=== PATIENT | female | born 1960 | race Caucasian/White ===

== ENCOUNTER 2016-05-01 18:25 | Emergency (ER) | payer OTHER ==
[~2016-05-01] VITALS: Ht 152.4 cm; Wt 63.5 kg
[~2016-05-01 18:25] MED LIST: ALBU2.5V3 NEB; ARIP5TAB7 PO; ASPI-650 PO; CIPR500T4 PO; CYCL-319 PO; EZET1TAB9 PO; GABA600T PO; HYDR-906 PO; HYDR12.53 PO; IBUP-1542 PO; IBUP800T25 PO; INSU100V19 SQ; LEVO100T87 PO; LISI5TAB PO; LORA10CA PO; METF-388 PO; METO-448 PO; NAPR-688 PO; OMEP20CA9 PO; ONDA4TAB14 PO; ONDA4TAB35 PO; RIS1 PO
[2016-05-01 18:30] VITALS: Ht 152.4 cm; Wt 63.5 kg
[2016-05-01] MEDS ORDERED: ONDANSETRON (ODT) 4 MG TAB ODT STA (22:50)
--- NOTE | 2016-05-01 22:54 | ERD ---
ER Documentation Chief Complaint Date/Time DATE: 05/01/16 TIME: 22:51 Chief Complaint n/v sharp abd generalized pain x 1 day HPI The patient is a 56-year-old female here with nausea, vomiting, and epigastric and right upper quadrant abdominal pain since this morning. She had 5 episodes of vomiting today. She denies fever, chills, diarrhea, constipation, dysuria, flank pain, chest pain, difficulty breathing, or any other symptoms at this time. States her last bowel movement was 2 days ago and was normal. She denies hematochezia and melena. No home treatments. She was seen at an emergency department through [facility] yesterday and she stated that she had an anxiety attack. The patient states that they did an EKG, chest x-ray, and labs which were all normal per the patient's report. She states that she has felt similar abdominal pain, nausea, and vomiting 4 years ago when she experienced an anxiety attack. She states that she has had an appendectomy, cholecystectomy , and C-sections in the past. She denies eating any questionable foods or new foods. She denies sick contacts with similar symptoms. ROS All systems reviewed and are negative except as per history of present illness. Medications Home Meds Active Scripts Ondansetron Hcl* (Zofran*) 4 Mg Tablet, 4 MG PO Q6H for NAUSEA AND/OR VOMITING, #9 TAB Prov:ZOIE DUNCAN NP 05/02/16 Acetaminophen* (Tylenol*) 325 Mg Tablet, 2 TAB PO Q6 Y for PAIN AND OR ELEVATED TEMP, #20 TAB Prov:ZOIE DUNCAN NP 05/02/16 Cyclobenzaprine Hcl* (Cyclobenzaprine Hcl*) 10 Mg Tablet, 10 MG PO TID, #15 TAB Prov:NORM BREWER [employer] 04/08/16 Ondansetron (Ondansetron Odt) 4 Mg Tab.rapdis, 4 MG PO Q6H Y for NAUSEA AND/OR VOMITING, #10 TAB Prov:ASHLEY MURPHY DO 01/19/16 Hydrocodone/Acetaminophen ([place] 5-325 Tablet) 1 Each Tablet, 1 EACH PO Q6, #7 TAB Prov:ASHLEY MURPHY DO 01/19/16 Naproxen* (Naproxen*) 500 Mg Tablet, 500 MG PO BID Y for PAIN, #20 TAB Prov:ASHLEY MURPHY DO 01/19/16 Ciprofloxacin Hcl* (Ciprofloxacin Hcl*) 500 Mg Tablet, 500 MG PO BID for 3 Days , TAB Prov:ASHLEY MURPHY DO 01/19/16 Ibuprofen* (Motrin*) 600 Mg Tab, 600 MG PO Q6, #30 TAB Prov:LUIS ENRIQUE POTTS Nola 01/18/16 Hydrocodone/Acetaminophen ([place] 5-325 Tablet) 1 Each Tablet, 1 TAB PO Q6H Y for PAIN, #20 TAB Prov:LUIS ENRIQUE POTTS Nola 01/18/16 Ondansetron Hcl* (Zofran* ODT) 4 mg -ODT Tab.disper, 4 MG PO Q6 Y for NAUSEA AND /OR VOMITING, #10 TAB Prov:CAT PATTON MD 06/11/15 Ibuprofen* (Motrin*) 800 Mg Tab, 800 MG PO Q6H Y for PAIN AND OR ELEVATED TEMP, #30 TAB Prov:CAT PATTON MD 06/11/15 Reported Medications Aripiprazole* (Abilify*) 5 Mg Tab, 5 MG PO DAILY, TAB 04/10/14 Albuterol Sulfate* (Albuterol Sulfate* Neb) 0.083%-3 Ml Neb, 1.25 MG NEB for WHEEZING AND SOB, EA 01/16/14 Loratadine* (Claritin*) 10 Mg Capsule, 10 MG PO DAILY 11/13/12 Risperidone* (Risperdal*) 1 Mg Tablet, 1 MG PO DAILY 08/09/12 Lisinopril* (Prinivil*) 5 Mg Tablet, 5 MG PO DAILY 08/09/12 Hydrochlorothiazide (Hydrochlorothiazide) 12.5 Mg Capsule, 12.5 MG PO DAILY 04/15/12 Aspirin (Aspirin) 81 Mg Tablet, 81 MG PO DAILY 04/15/12 Ezetimibe-Simvastatin (Vytorin) 1 Tab Tablet, 1 TAB PO DAILY 04/15/12 Levothyroxine Sodium* (Levothyroxine Sodium*) 100 Mcg Tablet, 100 MCG PO DAILY 04/15/12 Metoprolol Tartrate* (Lopressor*) 25 Mg Tab, 12.5 MG PO DAILY 04/15/12 Metformin Hcl* (Metformin Hcl*) 1,000 Mg Tablet, 1000 MG PO BID 04/15/12 Omeprazole* (Prilosec*) 20 Mg Capsule.dr, 20 MG PO DAILY 04/15/12 Gabapentin* (Neurontin*) 600 Mg Tablet, 600 MG PO TID 04/15/12 Insulin Glargine,Hum.rec.anlog (Lantus) 100 U/Ml Vial, 10 UNITS SQ HS 04/15/12 Allergies Allergies: Coded Allergies: povidone-iodine (Verified Allergy, Unknown, SWELLING, 06/11/15) PMhx/Soc History of Surgery: No Anesthesia Reaction: No Hx Neurological Disorder: No Hx Respiratory Disorders: No Hx Cardiac Disorders: No Hx Psychiatric Problems: No Hx Alcohol Use: No Hx Substance Use: No Hx Tobacco Use: No Smoking Status: Never smoker Physical Exam Vitals Vital Signs Date Time Temp Pulse Resp B/P Pulse Ox O2 Delivery O2 Flow Rate FiO2 05/02/16 02:10 98.6 89 20 103/69 98 Room Air 05/01/16 18:30 98.8 92 18 139/66 99 Physical Exam INITIAL VITAL SIGNS: Reviewed by me, afebrile, no tachycardia, oximetry 99% on room air GENERAL: Alert. Well developed and well nourished. No acute distress, however appears uncomfortable. HEAD: Head is normocephalic. Atraumatic. EYES: EOMI. No scleral icterus. No conjunctival injection. ENT: External ears, nose, and mouth normal. Nasal passages patent. Throat clear and without erythema or purulence. Airway patent. Moist mucous membranes. NECK: Supple. Full range of motion. No lymphadenopathy. Trachea midline. RESPIRATORY: No tachypnea. Clear to auscultation bilaterally. No wheezing, rales , or rhonchi. CV: Regular rate and rhythm. No murmurs, rubs, or gallops ABDOMEN: + Abdomen diffusely tender to palpation, worse in epigastric region. Negative Kessler's sign. Soft, non-distended. No guarding. No rebound. No masses. Bowel sounds normal in all quadrants. BACK: No CVA tenderness. Full ROM. EXTREMITIES: No obvious deformity. No clubbing or cyanosis. No edema. SKIN: Warm and dry. No diaphoresis. No obvious rashes or lesions. NEUROLOGIC: Alert and oriented x 3. Appropriate. Face is symmetric. Speech is normal. Moves all extremities equally. Result Diagram: 05/02/16 0020 05/02/16 0020 Results 24 hrs Laboratory Tests Test 05/01/16 23:15 05/02/16 00:20 05/02/16 00:21 Bedside Urine Blood Negative Bedside Urine Glucose (UA) 0.50% Bedside Urine Ketones (LAB) Negative Bedside Urine Leukocyte Esterase (L Trace Bedside Urine Nitrite (LAB) Negative Bedside Urine Protein (LAB) 2+ Bedside Urine pH (LAB) 5.5 Alanine Aminotransferase (ALT/SGPT) 38IU/L Albumin 3.7g/dl Albumin/Globulin Ratio 1.00 Alkaline Phosphatase 121IU/L Anion Gap 16 Aspartate Amino Transf (AST/SGOT) 41IU/L Basophils # 0.010^3/ul Basophils % 0.3% Blood Urea Nitrogen 20mg/dl Calcium Level 9.4mg/dl Carbon Dioxide Level 26mmol/L Chloride Level 103mmol/L Creatinine 0.54mg/dl Direct Bilirubin 0.00mg/dl Eosinophils # 0.210^3/ul Eosinophils % 3.0% Globulin 3.70g/dl Glucose Level 184mg/dl Hematocrit 37.3% Hemoglobin 13.2g/dl Indirect Bilirubin 0.3mg/dl Lymphocytes # 2.810^3/ul Lymphocytes % 46.5% Mean Corpuscular Hemoglobin 34.3pg Mean Corpuscular Hemoglobin Concent 35.3g/dl Mean Corpuscular Volume 97.2fl Mean Platelet Volume 8.9fl Monocytes # 0.410^3/ul Monocytes % 7.0% Neutrophils # 2.610^3/ul Neutrophils % 43.2% Nucleated Red Blood Cells # 0.010^3/ul Nucleated Red Blood Cells % 0.0/100WBC Platelet Count 58206^3/UL Potassium Level 4.3mmol/L Red Blood Count 3.8410^6/ul Red Cell Distribution Width 12.1% Sodium Level 141mmol/L Total Bilirubin 0.3mg/dl Total Protein 7.4g/dl White Blood Count 6.010^3/ul Bedside Glucose 197mg/dL Current Medications Medications (Trade) Dose Ordered Sig/Leyla Route PRN Reason Start Time Stop Time Status Last Admin Dose Admin Ondansetron HCl (Zofran Odt) 4 mg ONCE STAT ODT 05/01/16 22:50 05/01/16 22:52 DC 05/01/16 22:50 Acetaminophen (Tylenol Tab) 650 mg ONCE ONCE PO 05/01/16 23:00 05/01/16 23:01 DC 05/01/16 23:04 Ondansetron HCl (Zofran Odt) 4 mg ONCE STAT ODT 05/02/16 00:30 05/02/16 00:32 DC 05/02/16 00:38 Procedures/MDM Nursing Notes Reviewed [facility] EMERGENCY DEPARTMENT COURSE / MEDICAL DECISION MAKING: The patient comes to the ED secondary to nausea, vomiting, abdominal pain since this morning. Differential diagnosis upon initial evaluation includes but is not limited to: Bowel obstruction, diverticulitis, sepsis, viral illness, food poisoning, DKA, and others. The patient was treated with Zofran 4 mg p.o., Tylenol 650 mg p.o. On reassessment, patient was not feeling much better. Was treated with another Zofran 4mg po. CBC: no e/o of systemic infection or severe anemia CMP: no e/o severe acidosis, alkalosis, renal failure, diabetic ketoacidosis, liver disease Urine: no e/o acute infection or hematuria Accu-check: 197 Otherwise within normal limits, unremarkable, or as documented above. Final impression: Nausea and vomiting On reassessment, patient's abdominal pain has completely resolved, and her repeat physical exam was benign. She was not tender to palpation anywhere throughout her abdomen and she had normal bowel sounds in all quadrants. She stated that she is feeling fine and wishes to be discharged home at this time. Given her HPI, benign exam, her normal laboratory studies, and her drastic improvement with treatment, I have low suspicion at this time for DKA, bowel obstruction, diverticulitis, sepsis, food poisoning, or any other serious cause of illness. She has had her gallbladder and appendix removed. Although one can suffer from choledocholithiasis after gallbladder removal, I have low suspicion of this given her HPI, benign physical, normal labs, afebrile status, and improvement with treatment. Based on patient's history of present illness and physical examination the decision was made to discharge. The patient was re-evaluated after ED treatment and stabilizing measures, and symptoms have improved. There is no evidence of life threatening injuries or illnesses at this time. On re-examination, patient resting in no distress, stable vital signs, reports feeling better and safe for discharge with outpatient follow up with PMD in 1-2 days. Patient given return precautions. She verbalized understanding and agreed to return precautions. She will return immediately with any worsening symptoms, new symptoms, changing symptoms, or concerns. Prescriptions ZOIE Deleon NP May 01, 2016 22:54
[2016-05-01] MEDS ORDERED: ACETAMINOPHEN 325 MG TAB PO ONE (23:00)
[2016-05-01 23:15] LABS: URINE BLOOD (Dip) POC Negative (NEGATIVE)
[2016-05-02] MEDS ORDERED: ONDANSETRON (ODT) 4 MG TAB ODT STA (00:30)
[2016-05-02 01:08] LABS: ALBUMIN 3.7 g/dl (3.3-4.9); POTASSIUM 4.3 mmol/L (3.5-5.1)
[2016-05-02 01:10] LABS: CREATININE 0.54 mg/dl (0.44-1.00)
[2016-05-02 01:11] LABS: BILIRUBIN,INDIRECT 0.3 mg/dl (0-1.1); BILIRUBIN,TOTAL 0.3 mg/dl (0.2-1.3); TOTAL PROTEIN 7.4 g/dl (6.1-8.1)
[2016-05-02 01:12] LABS: CALCIUM 9.4 mg/dl (8.4-10.2)
[2016-05-02 01:29] LABS: BASOPHILS % 0.3 % (0.0-2.0); EOSINOPHILS # 0.2 10^3/ul (0.0-0.5); HEMATOCRIT 37.3 % (37.0-47.0); HEMOGLOBIN 13.2 g/dl (12.0-16.0); LYMPHOCYTES # 2.8 10^3/ul (0.8-2.9); LYMPHOCYTES % 46.5 % (15.0-51.0); MEAN CORPUSCULAR HEMOGLOBIN 34.3 pg (29.0-33.0); MEAN CORPUSCULAR HGB CONC 35.3 g/dl (32.0-37.0); MEAN CORPUSCULAR VOLUME 97.2 fl (82.0-101.0); MEAN PLATELET VOLUME 8.9 fl (7.4-10.4); MONOCYTE # 0.4 10^3/ul (0.3-0.9); NEUTROPHIL # 2.6 10^3/ul (1.6-7.5); NEUTROPHILS % 43.2 % (39.0-77.0); PLATELET COUNT 296 10^3/UL (140-440); RED BLOOD COUNT 3.84 10^6/ul (4.20-5.40); RED CELL DISTRIBUTION WIDTH 12.1 % (11.5-14.5)
[2016-05-02 01:30] LABS: CONDITION 1
[2016-05-02] MEDS ORDERED: ACET325T33 PO (01:41)
[2016-05-02] MEDS ORDERED: ONDA4TAB8 PO (01:41)
[2016-05-02 02:10] VITALS: BP 103/69; PULSE 89; RESP 20; TEMP 98.6
== END 2016-05-02 02:08 | disposition home or self-care (01) ==
LOC: FTE 18:25
DX: R11.2 Nausea with vomiting, unspecified (principal); E11.9 Type 2 diabetes mellitus without complications; Z79.82 Long term (current) use of aspirin; Z79.84 Long term (current) use of oral hypoglycemic drugs; Z79.4 Long term (current) use of insulin
CPT/HCPCS: 80053; 81003; 82962; 85025; Z7502; Z7610; 99283

== ENCOUNTER 2016-09-01 12:12 | Emergency (ER) | payer OTHER ==
[~2016-09-01] VITALS: Wt 69.0 kg
[~2016-09-01 12:12] MED LIST changes: +ACET325T33 PO; -METF-388 PO; +METF1000 PO; +ONDA4TAB8 PO
[2016-09-01] MEDS ORDERED: SOD CHLORIDE 0.9% 1,000 ML IV STA (14:29)
[2016-09-01] MEDS ORDERED: DICLOFENAC SODIUM 37.5 MG/ML VIAL IV STA (14:29)
[2016-09-01] MEDS ORDERED: ONDANSETRON 4 MG INJ IV STA (14:29)
[2016-09-01 15:01] LABS: ADD UMIC YES; URINE BILIRUBIN (Dip) NEGATIVE (NEGATIVE); URINE BLOOD (Dip) TRACE (NEGATIVE); URINE COLOR YELLOW (YELLOW); URINE GLUCOSE (Dip) >=1000 % (NEGATIVE); URINE KETONES (Dip) TRACE (NEGATIVE); URINE LEUKOCYTE ESTERASE (Dip) 1+ (NEGATIVE); URINE NITRITE (Dip) NEGATIVE (NEGATIVE); URINE TOTAL PROTEIN (Dip) 1+ (NEGATIVE); URINE UROBILINOGEN (Dip) 0.2 E.U./dL (0.1-1.0)
[2016-09-01 15:06] LABS: ADD SCAN DIFF NO
[2016-09-01 15:08] LABS: BASOPHIL # 0.1 10^3/ul (0.0-0.1); BASOPHILS % 0.8 % (0.0-2.0); EOSINOPHILS # 0.2 10^3/ul (0.0-0.5); EOSINOPHILS % 3.3 % (0.0-7.0); HEMATOCRIT 39.6 % (37.0-47.0); LYMPHOCYTES # 2.3 10^3/ul (0.8-2.9); LYMPHOCYTES % 35.9 % (15.0-51.0); MEAN CORPUSCULAR HEMOGLOBIN 33.7 pg (29.0-33.0); MEAN CORPUSCULAR HGB CONC 35.4 g/dl (32.0-37.0); MEAN CORPUSCULAR VOLUME 95.4 fl (82.0-101.0); MEAN PLATELET VOLUME 10.3 fl (7.4-10.4); MONOCYTE # 0.3 10^3/ul (0.3-0.9); MONOCYTES % 4.5 % (0.0-11.0); NEUTROPHIL # 3.5 10^3/ul (1.6-7.5); NEUTROPHILS % 55.2 % (39.0-77.0); PLATELET COUNT 270 10^3/UL (140-415); RED BLOOD COUNT 4.15 10^6/ul (4.20-5.40); RED CELL DISTRIBUTION WIDTH 12.3 % (11.5-14.5); WHITE BLOOD COUNT 6.4 10^3/ul (4.8-10.8)
[2016-09-01 15:11] LABS: SQUAMOUS EPITHELIAL CELL,UR FEW
[2016-09-01 15:13] LABS: BACTERIA,URINE OCCASIONAL
[2016-09-01 15:27] LABS: ALBUMIN/GLOBULIN RATIO 1.05; BILIRUBIN,INDIRECT 0.4 mg/dl (0-1.1); BILIRUBIN,TOTAL 0.4 mg/dl (0.2-1.3); CALCIUM 9.9 mg/dl (8.4-10.2); CREATININE 0.72 mg/dl (0.44-1.00); POTASSIUM 4.6 mmol/L (3.5-5.1); TOTAL PROTEIN 7.8 g/dl (6.1-8.1)
[2016-09-01] MEDS ORDERED: ONDA8TAB14 PO ×2 (16:00→16:01)
[2016-09-01] MEDS ORDERED: CEPH-443 PO (16:00)
[2016-09-01] MEDS ORDERED: ACET1TAB40 PO (16:01)
--- NOTE | 2016-09-01 16:08 | ERD ---
ER Documentation Chief Complaint Date/Time DATE: 09/01/16 TIME: 16:06 Chief Complaint AP AND NAUSEA AND VOMITING SINCE LAST NIGHT. EPIGASTRIC PAIN HPI This 56-year-old female presents with some nausea vomiting since last night. She has some left-sided and epigastric abdominal pain as well. She denies right -sided lower abdominal pain. She denies any measured fevers although she may have some chills. She denies any urinary complaints. Review of the medical record shows that patient present for similar pain last year with a diagnosis of colitis by CT scan ROS All systems reviewed and are negative except as per history of present illness. Medications Home Meds Active Scripts Acetaminophen with Codeine (Acetaminophen-Cod #3 Tablet) 1 Each Tablet, 1 TAB PO Q6H Y for PAIN, #10 TAB Prov:KAPIL CHERRY MD 09/01/16 Ondansetron (Ondansetron Odt) 8 Mg Tab.rapdis, 8 MG PO Q6H Y for NAUSEA AND/OR VOMITING, #8 TAB Prov:KAPIL CHERRY MD 09/01/16 Cephalexin* (Keflex*) 500 Mg Capsule, 500 MG PO QID for 5 Days, CAP Prov:KAPIL CHERRY MD 09/01/16 Ondansetron Hcl* (Zofran*) 4 Mg Tablet, 4 MG PO Q6H for NAUSEA AND/OR VOMITING, #9 TAB Prov:ZOIE DUNCAN, BON 05/02/16 Acetaminophen* (Tylenol*) 325 Mg Tablet, 2 TAB PO Q6 Y for PAIN AND OR ELEVATED TEMP, #20 TAB Prov:ZOIE DUNCAN NP 05/02/16 Cyclobenzaprine Hcl* (Cyclobenzaprine Hcl*) 10 Mg Tablet, 10 MG PO TID, #15 TAB Prov:NORM BREWER NP 04/08/16 Ondansetron (Ondansetron Odt) 4 Mg Tab.rapdis, 4 MG PO Q6H Y for NAUSEA AND/OR VOMITING, #10 TAB Prov:ASHLEY MURPHY DO 01/19/16 Hydrocodone/Acetaminophen ([place] 5-325 Tablet) 1 Each Tablet, 1 EACH PO Q6, #7 TAB Prov:ASHLEY MURPHY DO 01/19/16 Naproxen* (Naproxen*) 500 Mg Tablet, 500 MG PO BID Y for PAIN, #20 TAB Prov:ASHLEY MURPHY DO 01/19/16 Ciprofloxacin Hcl* (Ciprofloxacin Hcl*) 500 Mg Tablet, 500 MG PO BID for 3 Days , TAB Prov:ASHLEY MURPHY DO 01/19/16 Ibuprofen* (Motrin*) 600 Mg Tab, 600 MG PO Q6, #30 TAB Prov:LUIS ENRIQUE POTTS Nola 01/18/16 Hydrocodone/Acetaminophen ([place] 5-325 Tablet) 1 Each Tablet, 1 TAB PO Q6H Y for PAIN, #20 TAB Prov:LUIS ENRIQUE POTTS C 01/18/16 Ondansetron Hcl* (Zofran* ODT) 4 mg -ODT Tab.disper, 4 MG PO Q6 Y for NAUSEA AND /OR VOMITING, #10 TAB Prov:CAT PATTON MD 06/11/15 Ibuprofen* (Motrin*) 800 Mg Tab, 800 MG PO Q6H Y for PAIN AND OR ELEVATED TEMP, #30 TAB Prov:CAT PATTON MD 06/11/15 Reported Medications Aripiprazole* (Abilify*) 5 Mg Tab, 5 MG PO DAILY, TAB 04/10/14 Albuterol Sulfate* (Albuterol Sulfate* Neb) 0.083%-3 Ml Neb, 1.25 MG NEB for WHEEZING AND SOB, EA 01/16/14 Loratadine* (Claritin*) 10 Mg Capsule, 10 MG PO DAILY 11/13/12 Risperidone* (Risperdal*) 1 Mg Tablet, 1 MG PO DAILY 08/09/12 Lisinopril* (Prinivil*) 5 Mg Tablet, 5 MG PO DAILY 08/09/12 Hydrochlorothiazide (Hydrochlorothiazide) 12.5 Mg Capsule, 12.5 MG PO DAILY 04/15/12 Aspirin (Aspirin) 81 Mg Tablet, 81 MG PO DAILY 04/15/12 Ezetimibe-Simvastatin (Vytorin) 1 Tab Tablet, 1 TAB PO DAILY 04/15/12 Levothyroxine Sodium* (Levothyroxine Sodium*) 100 Mcg Tablet, 100 MCG PO DAILY 04/15/12 Metoprolol Tartrate* (Lopressor*) 25 Mg Tab, 12.5 MG PO DAILY 04/15/12 Metformin Hcl* (Metformin Hcl*) 1,000 Mg Tablet, 1000 MG PO BID 04/15/12 Omeprazole* (Prilosec*) 20 Mg Capsule.dr, 20 MG PO DAILY 04/15/12 Gabapentin* (Neurontin*) 600 Mg Tablet, 600 MG PO TID 04/15/12 Insulin Glargine,Hum.rec.anlog (Lantus) 100 U/Ml Vial, 10 UNITS SQ HS 04/15/12 Discontinued Scripts Ondansetron (Ondansetron Odt) 8 Mg Tab.rapdis, 8 MG PO Q6H Y for NAUSEA AND/OR VOMITING, #8 TAB Prov:KAPIL CHERRY MD 09/01/16 Allergies Allergies: Coded Allergies: povidone-iodine (Verified Allergy, Unknown, SWELLING, 09/01/16) PMhx/Soc History of Surgery: No Anesthesia Reaction: No Hx Neurological Disorder: No Hx Respiratory Disorders: Yes (ASTHMA ) Hx Cardiac Disorders: Yes (HTN , HIGH CHOLESTEROL ) Hx Psychiatric Problems: Yes (PTSD , BIPOLAR , SCHIZOPHRENIA , DEPRESSION ) Hx Alcohol Use: No Hx Substance Use: No Hx Tobacco Use: No Smoking Status: Never smoker Physical Exam Vitals Vital Signs Date Time Temp Pulse Resp B/P Pulse Ox O2 Delivery O2 Flow Rate FiO2 09/01/16 12:16 98.8 88 20 117/80 99 Physical Exam Const: [] Alert, [id number] per Head: Atraumatic Eyes: Normal Conjunctiva ENT: Normal External Ears, Nose and Mouth. Neck: Full range of motion..~ No meningismus. Resp: Clear to auscultation bilaterally Cardio: Regular rate and rhythm, no murmurs Abd: Soft mild epigastric tenderness. No rebound no masses. No Kessler sign and no tenderness at McBurney's point., non distended. Normal bowel sounds Skin: No petechiae or rashes Back: No midline or flank tenderness Ext: No cyanosis, or edema Neur: Awake and alert Psych: Normal Mood and Affect Result Diagram: 09/01/16 1450 09/01/16 1450 Results 24 hrs Laboratory Tests Test 09/01/16 14:40 09/01/16 14:50 Urine Color YELLOW Urine Clarity SLIGHTLY CLOUDY Urine pH 6.0 Urine Specific Nichols 1.025 Urine Ketones TRACE Urine Nitrite NEGATIVE Urine Bilirubin NEGATIVE Urine Urobilinogen 0.2 E.U./dL Urine Leukocyte Esterase 1+ Urine Microscopic RBC 2-5/HPF Urine Microscopic WBC 5-10/HPF Urine Squamous Epithelial Cells FEW Urine Bacteria OCCASIONAL Urine Hemoglobin TRACE Urine Glucose >=1000% Urine Total Protein 1+ White Blood Count 6.410^3/ul Red Blood Count 4.1510^6/ul Hemoglobin 14.0g/dl Hematocrit 39.6% Mean Corpuscular Volume 95.4fl Mean Corpuscular Hemoglobin 33.7pg Mean Corpuscular Hemoglobin Concent 35.4g/dl Red Cell Distribution Width 12.3% Platelet Count 63497^3/UL Mean Platelet Volume 10.3fl Neutrophils % 55.2% Lymphocytes % 35.9% Monocytes % 4.5% Eosinophils % 3.3% Basophils % 0.8% Nucleated Red Blood Cells % 0.0/100WBC Neutrophils # 3.510^3/ul Lymphocytes # 2.310^3/ul Monocytes # 0.310^3/ul Eosinophils # 0.210^3/ul Basophils # 0.110^3/ul Nucleated Red Blood Cells # 0.010^3/ul Sodium Level 133mmol/L Potassium Level 4.6mmol/L Chloride Level 99mmol/L Carbon Dioxide Level 29mmol/L Anion Gap 10 Blood Urea Nitrogen 21mg/dl Creatinine 0.72mg/dl Glucose Level 251mg/dl Calcium Level 9.9mg/dl Total Bilirubin 0.4mg/dl Direct Bilirubin 0.00mg/dl Indirect Bilirubin 0.4mg/dl Aspartate Amino Transf (AST/SGOT) 70IU/L Alanine Aminotransferase (ALT/SGPT) 114IU/L Alkaline Phosphatase 135IU/L Total Protein 7.8g/dl Albumin 4.0g/dl Globulin 3.80g/dl Albumin/Globulin Ratio 1.05 Lipase 21U/L Current Medications Medications (Trade) Dose Ordered Sig/Leyla Route PRN Reason Start Time Stop Time Status Last Admin Dose Admin Sodium Chloride (NS) 1,000 ml @ 1,000 mls/hr Q1H STAT IV 09/01/16 14:29 09/01/16 15:28 DC 09/01/16 15:01 Ondansetron HCl (Zofran Inj) 4 mg ONCE STAT IV 09/01/16 14:29 09/01/16 14:30 DC 09/01/16 14:58 Diclofenac Sodium (Dyloject) 37.5 mg ONCE STAT IV 09/01/16 14:29 09/01/16 14:30 DC 09/01/16 14:58 Procedures/MDM Given the patient's history of diabetes and vomiting an IV was obtained. CBC is normal. CMP significant for glucose of 251. Lipase is not elevated. Urine shows leukocyte esterase, bacteria with few epithelial cells. Patient was given 1 L normal saline IV, Zofran 4 mg IV and inject IV. Patient felt better after observation treatment. Patient presents with vomiting and epigastric pain of uncertain etiology, possibly early viral illness. There are signs of UTI and she will be treated for this although I doubt this is a cause of her symptoms. There is no signs to suggest ketoacidosis, dehydration, obstruction, acute abdomen. She will be treated with Keflex, Zofran and Tylenol with 3 at home instructed to follow-up with primary care doctor this week. The patient was stable with no new complaints during the ER course. Clinically, there is no current evidence to suggest meningitis, sepsis, acute abdomen, pneumonia, acute coronary syndrome, pulmonary embolism, or any other emergent condition appearing to require further evaluation or hospitalization. The patient should certainly return for any new or worsening symptoms per the aftercare instructions. They should otherwise follow-up with her primary care doctor for reevaluation this week. Departure Diagnosis: Primary Impression: UTI (urinary tract infection) Urinary tract infection type: acute cystitis Hematuria presence: without hematuria Qualified Code: N30.00 - Acute cystitis without hematuria Additional Impressions: Abdominal pain Abdominal location: epigastric Qualified Code: R10.13 - Epigastric pain Vomiting Vomiting type: unspecified Vomiting Intractability: unspecified Nausea presence: unspecified Qualified Code: R11.10 - Vomiting, intractability of vomiting not specified, presence of nausea not specified, unspecified vomiting type Condition: Stable Patient Instructions: Abdominal Pain, Understanding Urinary Tract Infections ( UTIs), Vomiting (6Y-Adult) Additional Instructions: No significant findings on labs. May be viral illness. We will treat for mild urine infection seen on urine, but likely not cause of symptoms. Drink plenty of fluids at home and bland diet. Recheck with primary doctor this week or for new or worsening symptoms. KAPIL CHERRY MD September 01, 2016 16:08
[2016-09-01 16:18] VITALS: BP 134/85; RESP 18
== END 2016-09-01 16:18 | disposition home or self-care (01) ==
LOC: FTE 12:12
DX: N30.00 Acute cystitis without hematuria (principal); R11.10 Vomiting, unspecified; J45.909 Unspecified asthma, uncomplicated; I10 Essential (primary) hypertension; E11.9 Type 2 diabetes mellitus without complications; Z79.4 Long term (current) use of insulin; Z79.84 Long term (current) use of oral hypoglycemic drugs; Z79.82 Long term (current) use of aspirin
CPT/HCPCS: 36415; 80053; 81001; 83690; 85025; 96374; 96375; J2405; J7030; Z7502; Z7610; 81003

== ENCOUNTER 2016-12-24 01:18 | Inpatient (IN) | payer OTHER ==
[~2016-12-24] VITALS: Ht 152.4 cm; Wt 66.0 kg
[2016-12-24] VITALS (43 sets, daily range): BP systolic 84–139; BP diastolic 45–80; PULSE 89–104; RESP 11–29; TEMP 98; Ht 152.4 cm; Wt 66.0 kg
[~2016-12-24 01:18] MED LIST changes: +ACET1TAB40 PO; +CEPH-443 PO; +ONDA8TAB14 PO
--- NOTE | 2016-12-24 01:29 | ERA ---
ER Documentation Chief Complaint Date/Time DATE: 12/24/16 TIME: 01:28 Chief Complaint Abdominal pain HPI The patient is a 56-year-old female, presenting to the ER because of epigastric abdominal pain for 1 day, worse this evening, associated with nausea, vomiting of food and mucus. She denies diarrhea, constipation, dysuria. She denies similar symptoms previously. She does not smoke nor drink Past medical history: Asthma, hypertension, dyslipidemia, PTSD, bipolar, schizophrenia, depression, hypothyroidism Past surgical history: Consists cholecystectomy, 3 ROS All systems reviewed and are negative except as per history of present illness. Medications Home Meds Active Scripts Ondansetron (Ondansetron Odt) 8 Mg Tab.rapdis, 8 MG PO Q6H Y for NAUSEA AND/OR VOMITING, #8 TAB Prov:KAPIL CHERRY MD 09/01/16 Cephalexin* (Keflex*) 500 Mg Capsule, 500 MG PO QID for 5 Days, CAP Prov:KAPIL CHERRY MD 09/01/16 Acetaminophen* (Tylenol*) 325 Mg Tablet, 2 TAB PO Q6 Y for PAIN AND OR ELEVATED TEMP, #20 TAB Prov:ZOIE DUNCAN NP 05/02/16 Cyclobenzaprine Hcl* (Cyclobenzaprine Hcl*) 10 Mg Tablet, 10 MG PO TID, #15 TAB Prov:NORM BREWER NP 04/08/16 Hydrocodone/Acetaminophen ([place] 5-325 Tablet) 1 Each Tablet, 1 EACH PO Q6, #7 TAB Prov:ASHLEY MURPHY DO 01/19/16 Ciprofloxacin Hcl* (Ciprofloxacin Hcl*) 500 Mg Tablet, 500 MG PO BID for 3 Days , TAB Prov:ASHLEY MURPHY DO 01/19/16 Ibuprofen* (Motrin*) 600 Mg Tab, 600 MG PO Q6, #30 TAB Prov:DELROYLUIS ENRIQUE C 01/18/16 Hydrocodone/Acetaminophen ([place] 5-325 Tablet) 1 Each Tablet, 1 TAB PO Q6H Y for PAIN, #20 TAB Prov:DELROY,LUIS ENRIQUE C 01/18/16 Ibuprofen* (Motrin*) 800 Mg Tab, 800 MG PO Q6H Y for PAIN AND OR ELEVATED TEMP, #30 TAB Prov:CAT PATTON MD 06/11/15 Reported Medications Aripiprazole* (Abilify*) 5 Mg Tab, 5 MG PO DAILY, TAB 04/10/14 Albuterol Sulfate* (Albuterol Sulfate* Neb) 0.083%-3 Ml Neb, 1.25 MG NEB for WHEEZING AND SOB, EA 01/16/14 Loratadine* (Claritin*) 10 Mg Capsule, 10 MG PO DAILY 11/13/12 Risperidone* (Risperdal*) 1 Mg Tablet, 1 MG PO DAILY 08/09/12 Lisinopril* (Prinivil*) 5 Mg Tablet, 5 MG PO DAILY 08/09/12 Hydrochlorothiazide (Hydrochlorothiazide) 12.5 Mg Capsule, 12.5 MG PO DAILY 04/15/12 Aspirin (Aspirin) 81 Mg Tablet, 81 MG PO DAILY 04/15/12 Ezetimibe-Simvastatin (Vytorin) 1 Tab Tablet, 1 TAB PO DAILY 04/15/12 Levothyroxine Sodium* (Levothyroxine Sodium*) 100 Mcg Tablet, 100 MCG PO DAILY 04/15/12 Metoprolol Tartrate* (Lopressor*) 25 Mg Tab, 12.5 MG PO DAILY 04/15/12 Metformin Hcl* (Metformin Hcl*) 1,000 Mg Tablet, 1000 MG PO BID 04/15/12 Omeprazole* (Prilosec*) 20 Mg Capsule.dr, 20 MG PO DAILY 04/15/12 Gabapentin* (Neurontin*) 600 Mg Tablet, 600 MG PO TID 04/15/12 Insulin Glargine,Hum.rec.anlog (Lantus) 100 U/Ml Vial, 10 UNITS SQ HS 04/15/12 Discontinued Scripts Acetaminophen with Codeine (Acetaminophen-Cod #3 Tablet) 1 Each Tablet, 1 TAB PO Q6H Y for PAIN, #10 TAB Prov:KAPIL CHERRY MD 09/01/16 Ondansetron Hcl* (Zofran*) 4 Mg Tablet, 4 MG PO Q6H for NAUSEA AND/OR VOMITING, #9 TAB Prov:ZOIE DUNCAN, BON 05/02/16 Ondansetron (Ondansetron Odt) 4 Mg Tab.rapdis, 4 MG PO Q6H Y for NAUSEA AND/OR VOMITING, #10 TAB Prov:ASHLEY MURPHY DO 01/19/16 Naproxen* (Naproxen*) 500 Mg Tablet, 500 MG PO BID Y for PAIN, #20 TAB Prov:ASHLEY MURPHY DO 01/19/16 Ondansetron Hcl* (Zofran* ODT) 4 mg -ODT Tab.disper, 4 MG PO Q6 Y for NAUSEA AND /OR VOMITING, #10 TAB Prov:CAT PATTON MD 06/11/15 Allergies Allergies: Coded Allergies: povidone-iodine (Unverified Allergy, Unknown, SWELLING, 12/24/16) PMhx/Soc History of Surgery: No Anesthesia Reaction: No Hx Neurological Disorder: No Hx Respiratory Disorders: Yes (ASTHMA ) Hx Cardiac Disorders: Yes (HTN , HIGH CHOLESTEROL ) Hx Psychiatric Problems: Yes (PTSD , BIPOLAR , SCHIZOPHRENIA , DEPRESSION ) Hx Alcohol Use: No Hx Substance Use: No Hx Tobacco Use: No Physical Exam Vitals Vital Signs Date Time Temp Pulse Resp B/P Pulse Ox O2 Delivery O2 Flow Rate FiO2 12/24/16 02:45 98.2 106 22 133/82 100 Room Air 12/24/16 01:40 97.9 100 18 129/82 100 Room Air 12/24/16 01:30 97.9 106 18 106/60 100 Physical Exam Const: No acute distress. Head: Atraumatic. Eyes: Normal Conjunctiva. ENT: Normal External Ears, Nose and Mouth. Neck: Full range of motion. No meningismus. Resp: Clear to auscultation bilaterally. Cardio: Regular rate and rhythm. Abd: Soft, non distended, normal bowel sounds, Moderate and diffuse abdominal tenderness, more tenderness at the epigastric area, no rigidity, rebound, CVA tenderness Skin: No petechiae or rashes. Back: No midline or flank tenderness. Ext: No cyanosis, or edema. Neur: Awake and alert. No focal deficit Psych: Normal Mood and Affect. Result Diagram: 12/24/1620912/24/16209 Results 24 hrs Laboratory Tests Test 12/24/16 02:10 12/24/16 04:45 White Blood Count 8.910^3/ul Red Blood Count 3.7410^6/ul Hemoglobin 13.7g/dl Hematocrit 37.8% Mean Corpuscular Volume 101.1fl Mean Corpuscular Hemoglobin 36.6pg Mean Corpuscular Hemoglobin Concent 36.2g/dl Red Cell Distribution Width 12.2% Platelet Count 00226^3/UL Mean Platelet Volume 11.7fl Neutrophils % 85.8% Lymphocytes % 10.1% Monocytes % 2.9% Eosinophils % 0.1% Basophils % 0.4% Nucleated Red Blood Cells % 0.0/100WBC Neutrophils # (Manual) 7.710^3/ul Lymphocytes # 0.910^3/ul Monocytes # 0.310^3/ul Eosinophils # 0.010^3/ul Basophils # 0.010^3/ul Nucleated Red Blood Cells # 0.010^3/ul Sodium Level 135mmol/L Potassium Level 5.1mmol/L Chloride Level 96mmol/L Carbon Dioxide Level 10mmol/L Anion Gap 34 Blood Urea Nitrogen 28mg/dl Creatinine 1.01mg/dl Glucose Level 649mg/dl Calcium Level 11.1mg/dl Total Bilirubin 0.1mg/dl Direct Bilirubin 0.00mg/dl Indirect Bilirubin 0.1mg/dl Aspartate Amino Transf (AST/SGOT) 23IU/L Alanine Aminotransferase (ALT/SGPT) 26IU/L Alkaline Phosphatase 161IU/L Total Protein 8.7g/dl Albumin 4.5g/dl Globulin 4.20g/dl Albumin/Globulin Ratio 1.07 Lipase 20U/L Blood Gas Specimen Source Blood arterial Arterial Blood Date Drawn 12/24/2016 4:52:04 AM Arterial Blood pH (Temp corrected) 7.222 Arterial Blood pCO2 (Temp correct) 18.2mmhg Arterial Blood pO2 (Temp corrected) 101.7mmHG Arterial Blood HCO3 7.3mmol/L Arterial Blood Base Excess -18.1mmol/L Arterial Blood Oxygen Saturation 96.6mmHG Horacio Test N/A Arterial Blood Gas Puncture Site Right Brachial Arterial Blood Carboxyhemoglobin 0.3% Arterial Blood Methemoglobin 0.4% Blood Gas A-a O2 Differential 26.2mmHg Oxyhemoglobin Percent 95.9% Total Hemoglobin 13.2g/dl Blood Gas Temperature 37.0C Blood Gas Modality ROOM AIR FiO2 21.0% Blood Gas Critical Value Read Back Sandra FISHER MD Blood Gas Notified Whom AA Blood Gas Notified Time 12/24/2016 5:07:03 AM Current Medications Medications (Trade) Dose Ordered Sig/Leyla Route PRN Reason Start Time Stop Time Status Last Admin Dose Admin Sodium Chloride (NS) 1,000 ml @ 1,000 mls/hr Q1H STAT IV 12/24/16 01:36 12/24/16 02:35 DC 12/24/16 02:21 Morphine Sulfate (morphine) 2 mg ONCE STAT IV 12/24/16 01:36 12/24/16 01:37 DC 12/24/16 02:24 Ondansetron HCl (Zofran Inj) 4 mg ONCE STAT IV 12/24/16 01:36 12/24/16 01:37 DC 12/24/16 02:24 Hydromorphone HCl 1 mg 1 mg ONCE STAT IV 12/24/16 03:33 12/24/16 03:34 DC 12/24/16 03:37 Sodium Chloride 1,000 ml @ 1,000 mls/hr Q1H ONCE IV 12/24/16 05:00 12/24/16 05:59 Insulin Human Regular/Sodium Chloride (Novolin-R/NS) 100 ml @ 0 mls/hr DKA PROTOCOL IV 12/24/16 05:30 Lidocaine (Xylocaine 1% (Mpf)) 5 ml ONCE ONCE SC 12/24/16 05:30 12/24/16 05:31 Procedures/[place] [id number] Radiology Main Line: [phone] DIAGNOSTIC IMAGING REPORT Patient: PATTI LARA : 1960 Age: 56 Sex: F MR #: [id number] DOS: 12/24/16 0136 Ordering MD: GRZEGORZ FISHER MD Location: E/R Room/Bed: PROCEDURE: CT ABDOMEN/PELVIS WITHOUT CONTRAST CLINICAL INDICATION: 56-year-old female with abdominal pain. TECHNIQUE: The study was performed utilizing a Room [employer] VCT 64-slice CT scanner. Direct axial sections were obtained through the abdomen and pelvis without the use of intravenous contrast material. Sagittal and coronal reformations were obtained. One or more of the following dose reduction techniques were utilized: automated exposure control, adjustment of the mA and/ or kV according to patient's size or use of iterative reconstruction technique. The images were reviewed on a PACS workstation. CTD/vol = 11.3 mGy; Total Exam DLP = 655.5 mGy-cm. COMPARISON: CT abdomen/pelvis January 18, 2016. FINDINGS: There is trace bibasilar subsegmental atelectasis. There is no evidence for significant pleural effusion. The liver has a normal size and contour without focal areas of abnormal density. No intrahepatic nor extrahepatic biliary ductal dilatation is seen. Surgical clips are present within the gallbladder fossa from prior cholecystectomy. The pancreas is without areas of abnormal attenuation. The spleen is identified and has a normal size without abnormal density. The adrenal glands are unremarkable. There are multiple diffuse small nonobstructing calculi scattered throughout the kidneys bilaterally as previously identified. There is mild prominence of the renal collecting system bilaterally without raf obstructive uropathy. The urinary bladder is distended with urine. There is diffuse circumferential thickening of the distal esophagus. The stomach is mildly distended with fluid. There is retained stool and contrast within the colon without evidence for bowel obstruction. The appendix is not visualized however there is no periappendiceal inflammatory changes. The uterus is elongated and anteflexed. There is no significant free fluid. The aortoiliac vessels are without aneurysmal dilatation. Degenerative changes are seen within the spine most prominently at L3-4 as previously visualized. IMPRESSION: 1. Status post cholecystectomy. 2. Multiple diffuse small bilateral scattered nonobstructing renal calculi. 3. Prominence of the renal collecting system bilaterally most likely secondary to a distended urine filled bladder. 4. Diffuse circumferential thickening of the distal esophagus. This may be secondary to esophagitis. Clinical correlation is necessary. 5. Retained stool without gross bowel obstruction. 6. Degenerative changes within the spine at L3-4. .Raheem Wylie MD, Date Time Electronically viewed and signed by .Raheem Wylie MD, MD on 12/24/2016 03:19 .M/ CC: GRZEGORZ FISHER MD . MEDICAL MAKING DECISION: The patient is a 56-year-old female, presenting with acute diabetic ketoacidosis, acute abdominal pain most likely due to acute esophagitis. She was treated with 2 L normal saline, insulin drip 0.1 U/kg/h, morphine 2 mg IV for pain and Zofran formalin IV for nausea with good response The differential diagnoses considered include but are not limited to cholelithiasis, cholecystitis, cystitis, pancreatitis, hepatitis, gastritis, peptic ulcer disease, gastric ulcer, appendicitis, diverticulitis, cholangitis, choledocholithiasis, partial small bowel obstruction. Critical Care: Time: 35 minutes excluding all billable procedures. Treatments/Evaluations: Close monitoring and treatment of unstable vital signs, cardiorespiratory, and neurologic status, while maintaining tight balance of fluid, respiratory, and cardiac interventions. Departure Diagnosis: Primary Impression: DKA (diabetic ketoacidoses) Additional Impression: Esophagitis Condition: Critical Comments I discussed the findings with the patient. I discussed the patient with the on- call hospitalist Dr. Rocha who was made aware of the lab, the treatment, the patient condition. The patient is admitted to ICU at 5 am GRZEGORZ FISHER MD Dec 24, 2016 01:29
[2016-12-24] MEDS ORDERED: SOD CHLORIDE 0.9% 1,000 ML IV STA (01:36)
[2016-12-24] MEDS ORDERED: morphine 2 MG INJ IV STA (01:36)
[2016-12-24] MEDS ORDERED: ONDANSETRON 4 MG INJ IV STA (01:36)
[2016-12-24 02:55] LABS: BASOPHILS % 0.4 % (0.0-2.0); EOSINOPHILS % 0.1 % (0.0-7.0); HEMATOCRIT 37.8 % (37.0-47.0); HEMOGLOBIN 13.7 g/dl (12.0-16.0); LYMPHOCYTES # 0.9 10^3/ul (0.8-2.9); LYMPHOCYTES % 10.1 % (15.0-51.0); MEAN CORPUSCULAR HEMOGLOBIN 36.6 pg (29.0-33.0); MEAN CORPUSCULAR HGB CONC 36.2 g/dl (32.0-37.0); MEAN CORPUSCULAR VOLUME 101.1 fl (82.0-101.0); MEAN PLATELET VOLUME 11.7 fl (7.4-10.4); MONOCYTE # 0.3 10^3/ul (0.3-0.9); MONOCYTES % 2.9 % (0.0-11.0); NEUTROPHILS % 85.8 % (39.0-77.0); PLATELET COUNT 296 10^3/UL (140-415); RED BLOOD COUNT 3.74 10^6/ul (4.20-5.40); RED CELL DISTRIBUTION WIDTH 12.2 % (11.5-14.5); WHITE BLOOD COUNT 8.9 10^3/ul (4.8-10.8)
--- NOTE | 2016-12-24 03:19 | RADRPT ---
PROCEDURE: CT ABDOMEN/PELVIS WITHOUT CONTRAST CLINICAL INDICATION: 56-year-old female with abdominal pain. TECHNIQUE: The study was performed utilizing a [employer] VCT 64-slice CT scanner. Direct axia l sections were obtained through the abdomen and pelvis without the use of intravenous contrast mate rial. Sagittal and coronal reformations were obtained. One or more of the following dose reduction t echniques were utilized: automated exposure control, adjustment of the mA and/or kV according to pat ient's size or use of iterative reconstruction technique. The [facility] CTD/vol = 11.3 mGy; Total Exam DLP = 655.5 mGy-cm. COMPARISON: CT abdomen/pelvis January 18, 2016. FINDINGS: There is trace bibasilar subsegmental atelectasis. There is no evidence for significant pleural eff usion. The liver has a normal size and contour without focal areas of abnormal density. No intrahep atic nor extrahepatic biliary ductal dilatation is seen. Surgical clips are present within the gallb ladder fossa from prior cholecystectomy. The pancreas is without areas of abnormal attenuation. Th e spleen is identified and has a normal size without abnormal density. The adrenal glands are unrema rkable. There are multiple diffuse small nonobstructing calculi scattered throughout the kidneys noemi aterally as previously identified. There is mild prominence of the renal collecting system bilatera lly without raf obstructive uropathy. The urinary bladder is distended with urine. There is diffus e circumferential thickening of the distal esophagus. The stomach is mildly distended with fluid. Th ere is retained stool and contrast within the colon without evidence for bowel obstruction. The appendix is not visualized however there is no periappendiceal inflammatory changes. The uterus is elongated and anteflexed. There is no significant free fluid. The aortoiliac vessels are without a neurysmal dilatation. Degenerative changes are seen within the spine most prominently at L3-4 as pre viously visualized. IMPRESSION: 1. Status post cholecystectomy. 2. Multiple diffuse small bilateral scattered nonobstructing renal calculi. 3. Prominence of the renal collecting system bilaterally most likely secondary to a distended urine filled bladder. 4. Diffuse circumferential thickening of the distal esophagus. This may be secondary to esophagiti s. Clinical correlation is necessary. 5. Retained stool without gross bowel obstruction. 6. Degenerative changes within the spine at L3-4. .Raheem Wylie MD, MD Date Time Electronically viewed and signed by .Raheem Wylie MD, on 12/24/2016 03:19 ./
[2016-12-24] MEDS ORDERED: HYDROmorphONE 1 MG/ML SYG IV STA (03:33)
[2016-12-24 04:25] LABS: ALBUMIN 4.5 g/dl (3.3-4.9); ALBUMIN/GLOBULIN RATIO 1.07; BILIRUBIN,INDIRECT 0.1 mg/dl (0-1.1); BILIRUBIN,TOTAL 0.1 mg/dl (0.2-1.3); CALCIUM 11.1 mg/dl (8.4-10.2); CREATININE 1.01 mg/dl (0.44-1.00); POTASSIUM 5.1 mmol/L (3.5-5.1); TOTAL PROTEIN 8.7 g/dl (6.1-8.1)
[2016-12-24] MEDS ORDERED: SOD CHLORIDE 0.9% 1,000 ML IV ONE (05:00)
[2016-12-24 05:09] LABS: AADO2 Arterial 26.2 mmHg (7.0-24.0); Arterial Base Excess -18.1 mmol/L (-3.0-3); Arterial COHb 0.3 % (0.0-3.0); Arterial Fraction of Oxyhgb 95.9 % (93.0-99.0); Arterial HCO3 7.3 mmol/L (22.0-26.0); Arterial MetHb 0.4 % (0.0-1.5); Arterial Total Hemglobin 13.2 g/dl (12.0-18.0); MODE ROOM AIR
[2016-12-24] MEDS ORDERED: INSULIN HUMAN REGULAR 100 UNIT in SOD CHLORIDE 0.9% 99 ML IV SCH (05:30)
[2016-12-24] MEDS ORDERED: LIDOCAINE 1% (MPF) 5 ML VIAL SC ONE (05:30)
[2016-12-24] MEDS ORDERED: ADJUSTMENT OF INSULIN INFUSION RATE (DKA PROTOCOL) XX SCH (06:00)
[2016-12-24] MEDS ORDERED: DEXTROSE 50% 25 ML IV PRN (06:00)
[2016-12-24] MEDS ORDERED: DEXTROSE 50% 50 ML IV PRN (06:00)
[2016-12-24] MEDS ORDERED: SOD CHLORIDE 0.9% 1,000 ML IV SCH ×2 (06:37→11:30)
[2016-12-24 06:54] LABS: URINE BLOOD (Dip) POC Trace-intact (NEGATIVE)
[2016-12-24] MEDS ORDERED: ALBUTEROL/IPRATROPIUM (NEB) 3 ML AMP NEB PRN (07:00)
[2016-12-24] MEDS ORDERED: ONDANSETRON 4 MG INJ IV PRN (07:00)
[2016-12-24] MEDS ORDERED: DEXTROSE 50% 50 ML SYRINGE IV PRN ×2 (07:00)
[2016-12-24] MEDS ORDERED: LORAZEPAM 2 MG INJ IV PRN (07:00)
[2016-12-24] MEDS: ACCU-CHEK XX SCH ×17 (07:05→23:16)
[2016-12-24] MEDS ORDERED: LACTATED RINGER'S 1,000 ML IV SCH (07:37)
--- NOTE | 2016-12-24 07:53 | HP ---
Date/Time of Note Date/Time of Note DATE: 12/24/16 TIME: 07:48 Assessment/Plan VTE Prophylaxis VTE Prophylaxis Intervention: SCD's Lines/Catheters IV Catheter Type (from Nrs): Saline Lock Assessment/Plan Assessment/Plan ASSESSMENT This is a 56-year-old female with a history of insulin-dependent diabetes, asthma, hypertension, dyslipidemia, PTSD, bipolar, schizophrenia, depression, hypothyroidism who presented to the ER with abdominal pain, nausea/vomiting and found to be in DKA. PLAN Admit to ICU on a DKA protocol Correct electrolytes as needed Endocrine consult Resume home medications when the patient no longer n.p.o. HPI/ROS Admit Date/Time Admit Date/Time Hx of Present Illness This is a 56-year-old female with history of insulin-dependent diabetes, asthma , hypertension, dyslipidemia, PTSD, bipolar, schizophrenia, depression, hypothyroidism who presented to the emergency department with abdominal pain and nausea and vomiting. Abdominal pain is diffuse and she described emesis as nonbilious nonbloody. Also reported generalized weakness. When she presented to the ER she was found to be in DKA with a blood glucose of 650, bicarb 10, anion gap 34 with a 4+ ketones in the urine. PH 7.22 on ABG. . PMH/Family/Social Past Medical History Insulin-dependent diabetes, Asthma, hypertension, dyslipidemia, PTSD, bipolar, schizophrenia, depression, hypothyroidism Social History Alcohol Use: none Smoking Status: Unknown if ever smoked Drug Use: none Exam/Review of Systems Vital Signs Vitals Vital Signs Date Time Temp Pulse Resp B/P Pulse Ox O2 Delivery O2 Flow Rate FiO2 12/24/16 06:55 98.0 102 22 115/66 100 Room Air Exam Constitutional: alert, oriented, well developed Head: atraumatic, normocephalic Eyes: EOMI, PERRL Respiratory: clear to auscultation, normal air movement Cardiovascular: other (Tachycardic with regular rhythm) Gastrointestinal: non-tender, soft Extremities: normal pulses Labs Result Diagram: 12/24/1620912/24/16 021 Medications Medications Current Medications Miscellaneous Information 1 ea NOTE XX ; Start 12/24/16 at 06:00 Dextrose (D50w Syringe) 25 ml PRN PRN IV DECREASED GLUCOSE; Start 12/24/16 at 06 :00 Dextrose (D50w Syringe) 50 ml PRN PRN IV DECREASED GLUCOSE; Start 12/24/16 at 06 :00 Dextrose (D50w Syringe) 50 ml Q15M PRN IV For BS 50 or less; Start 12/24/16 at 07:00; Status UNV Dextrose 25 ml 25 ml Q15M PRN IV BS between 50-70; Start 12/24/16 at 07:00; Status UNV Lactated Ringer's 1,000 ml @ 1,000 mls/hr Q1H IV Last administered on 07:41; Admin Dose 1,000 MLS/HR; Start 12/24/16 at 07:37; Stop 12/24/16 at 08: 36 Potassium Chloride/Sodium Chloride (KCl/NS) 1,010 ml @ 500 mls/hr Q2H2M IV ; Start 12/24/16 at 08:37; Stop 12/24/16 at 10:36; Status UNV Diagnostic Test (Pha) (Accu-Chek) 1 ea Q1H XX Last administered on 12/24/16 07: 05; Admin Dose 1 EA; Start 12/24/16 at 07:00 Ondansetron HCl (Zofran Inj) 4 mg Q6H PRN IV NAUSEA AND/OR VOMITING; Start 12/24 at 07:00 Morphine Sulfate (morphine) 2 mg Q4H PRN IV PAIN LEVEL 7-10; Start 12/24/16 at 07:00 Lorazepam (Ativan) 1 mg Q2H PRN IV ANXIETY; Start 12/24/16 at 07:00 Famotidine (Pepcid Iv) 20 mg Q12 IV ; Start 12/24/16 at 09:00 BERTHA MARTINEZ MD Dec 24, 2016 07:53
[2016-12-24] MEDS ORDERED: POTASSIUM CHLORIDE 20 MEQ in SOD CHLORIDE 0.9% 1,000 ML IV SCH (08:37)
[2016-12-24] MEDS: FAMOTIDINE 20 MG INJ IV SCH ×2 (09:41→20:48)
[2016-12-24 11:00] LABS: CALCIUM 9.5 mg/dl (8.4-10.2); CREATININE 0.89 mg/dl (0.44-1.00); POTASSIUM 4.2 mmol/L (3.5-5.1)
[2016-12-24 11:09] LABS: PHOSPHORUS 3.7 mg/dl (2.5-4.9)
[2016-12-24] MEDS: INSULIN HUMAN REGULAR 100 UNIT in SOD CHLORIDE 0.9% 99 ML IV SCH ×2 (11:38→15:43)
[2016-12-24] MEDS ORDERED: POTASSIUM CHLORIDE 20 MEQ in LACTATED RINGER'S 1,000 ML IV SCH (12:30)
[2016-12-24 14:19] LABS: CALCIUM 9.3 mg/dl (8.4-10.2); CREATININE 0.89 mg/dl (0.44-1.00)
[2016-12-24] MEDS ORDERED: hydrALAzine 20 MG INJ IV PRN (14:30)
--- NOTE | 2016-12-24 15:09 | CONS ---
Date/Time of Note Date/Time of Note DATE: 12/24/16 TIME: 14:59 Assessment/Plan Assessment/Plan Problems: (1) DKA (diabetic ketoacidoses) Status: Acute Comment: It is not entirely clear why this type II diabetic is gone into DKA. She will be pancultured will do cardiac enzymes to make sure she has not had an acute coronary syndrome. Please note she did have negative coronary angiography April 19, [address] Howard. She is on insulin drip and is resolving as per protocol. Need to keep a careful eye on her potassiums phosphorus and magnesium as I expect these will actually need significant replacement. Qualifiers: Qualified Code: E13.10 - Diabetic ketoacidosis without coma associated with type 2 diabetes mellitus (2) Diabetes mellitus type 2 in nonobese Status: Chronic Comment: Chronically insulin treated for this in combination with metformin. Clear she has not had good sugar control and she has not had consistent follow- up for this. Once we get her out of DKA will try and go with a simple regimen to get best possible control. (3) Hypertension associated with diabetes Status: Chronic Comment: Is not entirely clear which medicine she has been taking. She should be on an MIRIAN inhibitor. (4) Hyperlipidemia Status: Chronic Comment: Statin therapy. Qualifiers: Qualified Code: E78.00 - Pure hypercholesterolemia (5) Psychiatric disturbance Status: Chronic Comment: There is indications in the chart of PTSD and bipolar affective disorder and schizoaffective disorder. What the actual correct diagnosis is is not clear nor is an important today. This will need to be addressed however in the course of this hospitalization (6) Hypothyroid Status: Chronic Comment: Check her TSH and put her back on levothyroxine. Historically she has not had adequate replacement. She believes that she is on 50 mcg a day last dose we have in chart were 100 mcg a day that was 4 years ago Qualifiers: Qualified Code: E03.9 - Acquired hypothyroidism (7) Gastroesophageal reflux disease Status: Chronic Comment: Noted. 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 She reports a 35 year history of diabetes mellitus type 2 although may have been a different timeframe but is definitely been there for at least 6 years. Where she is treated with insulin and metformin. She reports she has had some rare episodes of DKA. In the last 1 month she has been feeling poorly with some sensation of nausea and vomiting. She has not had any specific infectious symptoms Constitutional: no complaints (She denies fevers chills or sweats) Eyes: other (Complains of some blurriness of vision without visual loss) ENT: no complaints Respiratory: no complaints (Denies cough or shortness of breath but does have a history of asthma) Cardiovascular: no complaints (Denies chest pain) Gastrointestinal: no complaints (Positive nausea with some rare emesis and abdominal pain. She reports this is different than when she had the gallbladder some years in the past) Genitourinary: no complaints Musculoskeletal: back pain Skin: no complaints Neurologic: no complaints Endocrine: polydypsia, polyuria Psychological: anxiety, depression Immunologic: no complaints Past Medical History 1) asthma; 2) essential hypertension 3) hyperlipidemia 4) diabetes mellitus type 2 5) psychiatric disorder possible bipolar affective disorder versus schizoaffective disorder versus PTSD 6) gastroesophageal reflux disease 7) hypothyroidism 8) noncompliance 9) homelessness Past Surgical History Past Surgical Hx: appendectomy, cholecystectomy, other (Status post 3; status post right hand surgery) Family History Significant Family History: diabetes Social History Alcohol Use: none Smoking Status: Former smoker Drug Use: none Exam/Review of Systems Vital Signs Vitals Vital Signs Date Time Temp Pulse Resp B/P Pulse Ox O2 Delivery O2 Flow Rate FiO2 12/24/16 13:15 93 22 91/64 97 Room Air 12/24/16 12:00 98.1 Exam Constitutional: alert Head: atraumatic, normocephalic Neck: non-tender, other (No lymphadenopathy no thyromegaly), supple Respiratory: normal air movement, wheezing (Scant wheezing) Cardiovascular: nl pulses, regular rate and rhythm Gastrointestinal: nl liver, spleen, non-tender, soft Extremities: normal pulses Neurological: CUSTOM STOCK MAKER II-XII intact, nl mental status, nl speech, nl strength Lymph: nl lymph nodes Results Result Diagram: 12/24/16 0210 12/24/16 1347 Results 24 hrs Laboratory Tests Test 12/24/16 02:10 12/24/16 04:45 12/24/16 06:05 12/24/16 07:00 White Blood Count 8.9 # Red Blood Count 3.74 L Hemoglobin 13.7 Hematocrit 37.8 Mean Corpuscular Volume 101.1 H Mean Corpuscular Hemoglobin 36.6 H Mean Corpuscular Hemoglobin Concent 36.2 Red Cell Distribution Width 12.2 Platelet Count 296 Mean Platelet Volume 11.7 H Neutrophils % 85.8 H Lymphocytes % 10.1 L Monocytes % 2.9 Eosinophils % 0.1 Basophils % 0.4 Nucleated Red Blood Cells % 0.0 Neutrophils # (Manual) 7.7 H Lymphocytes # 0.9 Monocytes # 0.3 Eosinophils # 0.0 Basophils # 0.0 Nucleated Red Blood Cells # 0.0 Sodium Level 135 Potassium Level 5.1 Chloride Level 96 L Carbon Dioxide Level 10 L Anion Gap 34 H Blood Urea Nitrogen 28 H Creatinine 1.01 H Glucose Level 649 *H Hemoglobin A1c 12.1 H Calcium Level 11.1 H Total Bilirubin 0.1 L Direct Bilirubin 0.00 Indirect Bilirubin 0.1 Aspartate Amino Transf (AST/SGOT) 23 Alanine Aminotransferase (ALT/SGPT) 26 Alkaline Phosphatase 161 H Total Protein 8.7 H Albumin 4.5 Globulin 4.20 H Albumin/Globulin Ratio 1.07 Lipase 20 L Blood Gas Specimen Source Blood arterial Arterial Blood Date Drawn 12/24/2016 4:52:04 AM Arterial Blood pH (Temp corrected) 7.222 *L Arterial Blood pCO2 (Temp correct) 18.2 L Arterial Blood pO2 (Temp corrected) 101.7 H Arterial Blood HCO3 7.3 *L Arterial Blood Base Excess -18.1 L Arterial Blood Oxygen Saturation 96.6 Horacio Test N/A Arterial Blood Gas Puncture Site Right Brachial Arterial Blood Carboxyhemoglobin 0.3 Arterial Blood Methemoglobin 0.4 Blood Gas A-a O2 Differential 26.2 H Oxyhemoglobin Percent 95.9 Total Hemoglobin 13.2 Blood Gas Temperature 37.0 Blood Gas Modality ROOM AIR FiO2 21.0 Blood Gas Critical Value Read Back Sandra FISHER MD Blood Gas Notified Whom AA Blood Gas Notified Time 12/24/2016 5:07:03 AM Bedside Glucose 580 *H Bedside Urine pH (LAB) 5.0 Bedside Urine Protein (LAB) Trace H Bedside Urine Glucose (UA) 0.50% H Bedside Urine Ketones (LAB) 4+ H Bedside Urine Blood Trace-intact H Bedside Urine Nitrite (LAB) Negative Bedside Urine Leukocyte Esterase (L Negative Test 12/24/16 07:11 12/24/16 07:57 12/24/16 08:56 12/24/16 10:18 Bedside Glucose 556 *H 595 *H 511 *H Sodium Level 138 Potassium Level 4.2 Chloride Level 106 # Carbon Dioxide Level 12 L Anion Gap 24 #H Blood Urea Nitrogen 28 H Creatinine 0.89 Glucose Level 426 #*H Calcium Level 9.5 Phosphorus Level 3.7 Test 12/24/16 11:04 12/24/16 12:21 12/24/16 13:11 12/24/16 13:47 Bedside Glucose 342 H 298 H 288 H Sodium Level 139 Potassium Level 4.0 Chloride Level 109 Carbon Dioxide Level 15 L Anion Gap 19 H Blood Urea Nitrogen 29 H Creatinine 0.89 Glucose Level 302 H Calcium Level 9.3 Test 12/24/16 14:15 Bedside Glucose 264 H Medications Medications Current Medications Dextrose (D50w Syringe) 50 ml Q15M PRN IV For BS 50 or less; Start 12/24/16 at 07:00 Dextrose (D50w Syringe) 25 ml Q15M PRN IV BS between 50-70; Start 12/24/16 at 07 :00 Diagnostic Test (Pha) (Accu-Chek) 1 ea Q1H XX Last administered on 12/24/16 07: 05; Admin Dose 1 EA; Start 12/24/16 at 07:00 Ondansetron HCl (Zofran Inj) 4 mg Q6H PRN IV NAUSEA AND/OR VOMITING Last administered on 12/24/16 11:07; Admin Dose 4 MG; Start 12/24/16 at 07:00 Morphine Sulfate (morphine) 2 mg Q4H PRN IV PAIN LEVEL 7-10; Start 12/24/16 at 07:00 Lorazepam (Ativan) 1 mg Q2H PRN IV ANXIETY; Start 12/24/16 at 07:00 Famotidine 20 mg 20 mg Q12 IV Last administered on 12/24/16 09:41; Admin Dose 20 MG; Start 12/24/16 at 09:00 Sodium Chloride 1,000 ml @ 100 mls/hr Q10H IV Last administered on 12/24/16t 11 :38; Admin Dose 100 MLS/HR; Start 12/24/16 at 11:30; Stop 12/24/16 at 21:29 Potassium Chloride/Lactated Ringer's (KCl/Lr) 1,010 ml @ 150 mls/hr Q6H44M IV ; Start 12/24/16 at 12:30 Hydralazine HCl (Apresoline) 10 mg Q6H PRN IV SBP>160; Start 12/24/16 at 14:30 ASHLEY VARGAS MD Dec 24, 2016 15:09
[2016-12-24] MEDS: DEXTROSE 5%-0.9% NACL 1,000 ML IV SCH (15:28)
[2016-12-24 19:07] LABS: CREATININE 0.76 mg/dl (0.44-1.00)
[2016-12-24] MEDS: ATORVASTATIN 40 MG TAB PO SCH (20:48)
[2016-12-24] MEDS ORDERED: LEVOTHYROXINE 100 MCG VIAL IV ONE (22:30)
[2016-12-24] MEDS: SALMETEROL/FLUTICASONE 250/50 INHA INH SCH (23:16)
[2016-12-24 23:35] LABS: CALCIUM 8.9 mg/dl (8.4-10.2); CREATININE 0.71 mg/dl (0.44-1.00); POTASSIUM 3.8 mmol/L (3.5-5.1)
[2016-12-25] VITALS (22 sets, daily range): BP systolic 101–148; BP diastolic 59–84; PULSE 91–99; RESP 10–21
[2016-12-25] MEDS: D5-NS + KCL 20 MEQ 1,000 ML IV SCH ×2 (00:15)
[2016-12-25] MEDS: ACCU-CHEK XX SCH ×4 (00:17→02:47)
[2016-12-25] MEDS: INSULIN HUMAN REGULAR 100 UNIT in SOD CHLORIDE 0.9% 99 ML IV SCH (01:14)
[2016-12-25] MEDS: DEXTROSE 5%-0.9% NACL 1,000 ML IV SCH (01:30)
[2016-12-25] MEDS ORDERED: GLUCOSE GEL 15 GRAM TUBE PO PRN ×2 (02:15)
[2016-12-25] MEDS ORDERED: GLUCOSE GEL 15 GRAM TUBE BUCCAL PRN (02:15)
[2016-12-25] MEDS ORDERED: DEXTROSE 50% 50 ML SYRINGE IV PRN ×2 (02:15)
[2016-12-25] MEDS ORDERED: INSULIN GLARGINE [LANtus] 3 ML PEN SC ONE (02:15)
[2016-12-25] MEDS ORDERED: GLUCAGON 1 MG INJ IM PRN (02:15)
[2016-12-25 05:23] LABS: BASOPHILS % 0.4 % (0.0-2.0); EOSINOPHILS % 0.9 % (0.0-7.0); HEMATOCRIT 32.1 % (37.0-47.0); HEMOGLOBIN 11.5 g/dl (12.0-16.0); LYMPHOCYTES % 21.1 % (15.0-51.0); MEAN CORPUSCULAR HEMOGLOBIN 36.1 pg (29.0-33.0); MEAN CORPUSCULAR HGB CONC 35.8 g/dl (32.0-37.0); MEAN CORPUSCULAR VOLUME 100.6 fl (82.0-101.0); MEAN PLATELET VOLUME 10.4 fl (7.4-10.4); MONOCYTE # 0.7 10^3/ul (0.3-0.9); MONOCYTES % 15.3 % (0.0-11.0); NEUTROPHILS % 62.1 % (39.0-77.0); PLATELET COUNT 255 10^3/UL (140-415); RED BLOOD COUNT 3.19 10^6/ul (4.20-5.40); RED CELL DISTRIBUTION WIDTH 12.3 % (11.5-14.5); WHITE BLOOD COUNT 4.6 10^3/ul (4.8-10.8)
[2016-12-25 05:40] LABS: POSITIVE DIFF @See below
[2016-12-25 05:42] LABS: ALBUMIN 2.6 g/dl (3.3-4.9); ALBUMIN/GLOBULIN RATIO 0.86; BILIRUBIN,INDIRECT 0.1 mg/dl (0-1.1); BILIRUBIN,TOTAL 0.1 mg/dl (0.2-1.3); CALCIUM 8.4 mg/dl (8.4-10.2); CREATININE 0.73 mg/dl (0.44-1.00); POTASSIUM 4.1 mmol/L (3.5-5.1); TOTAL PROTEIN 5.6 g/dl (6.1-8.1)
[2016-12-25 05:58] LABS: CHOL/HDL RATIO 2.2 RATIO
[2016-12-25] MEDS ORDERED: LEVOTHYROXINE 125 MCG TAB PO SCH (06:00)
[2016-12-25] MEDS ORDERED: NA PHOSPHATE/BIPHOS 133 ML ENEMA PR ONE (07:30)
--- NOTE | 2016-12-25 07:35 | CONS ---
Date/Time of Note Date/Time of Note DATE: 12/25/16 TIME: 07:29 Assessment/Plan Assessment/Plan Chief Complaint/Hosp Course 56-year-old female who lives in a homeless [place] [facility]. She reports a 35 year history of diabetes mellitus type 2 although may have been a different timeframe but is definitely been there for at least 6 years. Where she is treated with insulin and metformin. She reports she has had some rare episodes of DKA. In the last 1 month she has been feeling poorly with some sensation of nausea and vomiting. She has not had any specific infectious symptoms. Please note shall informs today that she has been off of her thyroid medications for at least 6 weeks Problems: (1) Myxedema Status: Chronic Comment: Reviewing historical records she is never had adequate TSH control at any the admissions over many years at this facility. Unclear to me why she is not doing it but we need to adjust her medications. I have given her a dosage of IV levothyroxine to saturate her T4 receptors and also given her small doses of oral T3 to bring her up. She is stable I believe we can bring her up to normal level relatively quickly. Please note that her cortisol axis is intact (2) Hypothyroid Status: Chronic Comment: She has not had adequate control this is having a significant effect on multiple avenues of her life. Trying get this under control but while this is not controlled some possible to deal with her psychiatric disturbances underlying. Please note her cortisol axis is intact Qualifiers: Hypothyroidism type: acquired Qualified Code: E03.9 - Acquired hypothyroidism (3) Psychiatric disturbance Status: Chronic Comment: As above. Going to defer writing prescriptions for this to the primary team for the moment (4) Hypertension associated with diabetes Status: Chronic Comment: She is stable. She can have an MIRIAN inhibitor added shortly as needed (5) Hyperlipidemia Status: Chronic Comment: On statin therapy add appropriate dosing Qualifiers: Hyperlipidemia type: pure hypercholesterolemia Qualified Code: E78.00 - Pure hypercholesterolemia (6) Diabetes mellitus type 2 in nonobese Status: Chronic Comment: Her blood sugar control is her current into line quite nicely. We will be adjusting her IV fluids and she can move out of the intensive care unit today (7) DKA (diabetic ketoacidoses) Status: Resolved Comment: Fully resolved off of IV insulin drip Qualifiers: Diabetes mellitus type: type 2 Diabetes mellitus complication detail: without coma Qualified Code: E13.10 - Diabetic ketoacidosis without coma associated with type 2 diabetes mellitus Consultation Date/Type/Reason Admit Date/Time Dec 24, 2016 at 06:43 Initial Consult Date 12/24/16 Type of Consultation: Endocrinology Reason for Consultation Diabetes mellitus type 2 with stress-induced DKA; hypothyroidism with myxedema; Referring Provider: NICOLÁS HAYNES 24 HR Interval Summary Free Text/Dictation Patient reports she feels a little bit better today. Her history is variable. Please see the review of systems Constitutional: no complaints (Denies fevers chills or sweats) Detailed Summary ENT: no complaints Respiratory: no complaints (Denies cough wheezing shortness of breath) Cardiovascular: no complaints Gastrointestinal: decreased appetite, nausea (Reports nausea and vomiting that has been going on for at least 6 weeks) Genitourinary: no complaints Musculoskeletal: other (Multiple aches and pains) Endocrine: dry skin (Multiple symptoms consistent with hypothyroidism) Exam/Review of Systems Vital Signs Vitals Vital Signs Date Time Temp Pulse Resp B/P Pulse Ox O2 Delivery O2 Flow Rate FiO2 12/25/16 06:00 92 16 136/84 Room Air 12/25/16 05:00 98 12/25/16 04:00 98.4 Intake and Output 12/24/16 12/24/16 12/25/16 15:00 23:00 07:00 Intake Total 352.5 ml 852.000 ml 893.0 ml Output Total 400 ml 260 ml 240 ml Balance -47.5 ml 592.000 ml 653.0 ml Exam Arousable woman lying in bed who has obvious signs of myxedema Constitutional: alert, oriented Psych: anxiety, depression Neck: non-tender, supple Respiratory: clear to auscultation, normal air movement Cardiovascular: nl pulses, regular rate and rhythm Gastrointestinal: nl liver, spleen, non-tender, soft Results Result Diagram: 12/25/16 0433 12/25/16 0433 Results 24 hrs Laboratory Tests Test 12/24/16 07:57 12/24/16 08:56 12/24/16 10:18 12/24/16 11:04 Bedside Glucose 595 *H 511 *H 342 H Sodium Level 138 Potassium Level 4.2 Chloride Level 106 # Carbon Dioxide Level 12 L Anion Gap 24 #H Blood Urea Nitrogen 28 H Creatinine 0.89 Glucose Level 426 #*H Calcium Level 9.5 Phosphorus Level 3.7 Test 12/24/16 12:21 12/24/16 13:11 12/24/16 13:47 12/24/16 14:15 Bedside Glucose 298 H 288 H 264 H Sodium Level 139 Potassium Level 4.0 Chloride Level 109 Carbon Dioxide Level 15 L Anion Gap 19 H Blood Urea Nitrogen 29 H Creatinine 0.89 Glucose Level 302 H Calcium Level 9.3 Test 12/24/16 15:07 12/24/16 15:12 12/24/16 16:05 12/24/16 17:08 Bedside Glucose 242 H 188 191 Thyroid Stimulating Hormone (TSH) 205.000 H Hepatitis B Surface Antigen NEGATIVE Hepatitis C Antibody NEGATIVE Test 12/24/16 18:03 12/24/16 18:39 12/24/16 20:16 12/24/16 21:08 Bedside Glucose 197 171 143 Sodium Level 137 Potassium Level 4.0 Chloride Level 112 H Carbon Dioxide Level 17 L Anion Gap 12 # Blood Urea Nitrogen 31 H Creatinine 0.76 Glucose Level 217 Calcium Level 9.0 Test 12/24/16 22:15 12/24/16 23:05 12/24/16 23:18 12/25/16 00:16 Bedside Glucose 131 122 99 Sodium Level 138 Potassium Level 3.8 Chloride Level 112 H Carbon Dioxide Level 20 L Anion Gap 10 Blood Urea Nitrogen 32 H Creatinine 0.71 Glucose Level 147 # Calcium Level 8.9 Random Cortisol 21.4 Test 12/25/16 01:02 12/25/16 01:53 12/25/16 02:58 12/25/16 04:33 Bedside Glucose 95 85 101 White Blood Count 4.6 #L Red Blood Count 3.19 L Hemoglobin 11.5 L Hematocrit 32.1 L Mean Corpuscular Volume 100.6 Mean Corpuscular Hemoglobin 36.1 H Mean Corpuscular Hemoglobin Concent 35.8 Red Cell Distribution Width 12.3 Platelet Count 255 Mean Platelet Volume 10.4 Neutrophils % 62.1 Lymphocytes % 21.1 Monocytes % 15.3 H Eosinophils % 0.9 Basophils % 0.4 Nucleated Red Blood Cells % 0.0 Neutrophils # (Manual) 2.9 Lymphocytes # 1.0 Monocytes # 0.7 Eosinophils # 0.0 Basophils # 0.0 Nucleated Red Blood Cells # 0.0 Sodium Level 138 Potassium Level 4.1 Chloride Level 113 H Carbon Dioxide Level 18 L Anion Gap 11 Blood Urea Nitrogen 28 H Creatinine 0.73 Glucose Level 177 Calcium Level 8.4 Total Bilirubin 0.1 L Direct Bilirubin 0.00 Indirect Bilirubin 0.1 Aspartate Amino Transf (AST/SGOT) 18 Alanine Aminotransferase (ALT/SGPT) 21 Alkaline Phosphatase 113 Troponin I < 0.012 Total Protein 5.6 #L Albumin 2.6 #L Globulin 3.00 Albumin/Globulin Ratio 0.86 Triglycerides Level 53 Cholesterol Level 175 LDL Cholesterol, Calculated 85 HDL Cholesterol 79 Cholesterol/HDL Ratio 2.2 Test 12/25/16 04:37 Phosphorus Level 1.9 #L Medications Medications Current Medications Dextrose (D50w Syringe) 50 ml Q15M PRN IV For BS 50 or less; Start 12/24/16 at 07:00 Dextrose (D50w Syringe) 25 ml Q15M PRN IV BS between 50-70; Start 12/24/16 at 07 :00 Ondansetron HCl (Zofran Inj) 4 mg Q6H PRN IV NAUSEA AND/OR VOMITING Last administered on 12/24/16 11:07; Admin Dose 4 MG; Start 12/24/16 at 07:00 Morphine Sulfate (morphine) 2 mg Q4H PRN IV PAIN LEVEL 7-10; Start 12/24/16 at 07:00 Lorazepam (Ativan) 1 mg Q2H PRN IV ANXIETY; Start 12/24/16 at 07:00 Famotidine (Pepcid Iv) 20 mg Q12 IV Last administered on 12/24/16 20:48; Admin Dose 20 MG; Start 12/24/16 at 09:00 Hydralazine HCl (Apresoline) 10 mg Q6H PRN IV SBP>160; Start 12/24/16 at 14:30 Salmeterol Xinafoate/ Fluticasone (Advair 250/50 Diskus) 1 inh BID INH Last administered on 12/24/16 23:16; Admin Dose 1 INH; Start 12/24/16 at 21:00 Levothyroxine Sodium (Synthroid) 125 mcg DAILY@06 PO Last administered on 05:22; Admin Dose 125 MCG; Start 12/25/16 at 06:00 Atorvastatin Calcium 40 mg 40 mg HS PO Last administered on 12/24/16 20:48; Admin Dose 40 MG; Start 12/24/16 at 21:00 Potassium Chloride/Dextrose/ Sod Cl 1,000 ml @ 125 mls/hr Q8H IV Last administered on 12/25/16t 00:15; Admin Dose 125 MLS/HR; Start 12/24/16 at 16:00; Stop 12/25/16 at 07:59 Dextrose/Sodium Chloride (D5-NS) 1,000 ml @ 100 mls/hr Q10H IV Last administered on 12/24/16t 15:28; Admin Dose 100 MLS/HR; Start 12/24/16 at 15:30 Insulin Glargine (Lantus) 25 unit DAILY@08 SC ; Start 12/26/16 at 08:00 Diagnostic Test (Pha) (Accu-Chek) 1 ea 02 XX ; Start 12/25/16 at 02:00 Miscellaneous Information 1 ea NOTE XX ; Start 12/25/16 at 02:15 Glucose (Glutose) 15 gm Q15M PRN PO DECREASED GLUCOSE; Start 12/25/16 at 02:15 Glucose (Glutose) 22.5 gm Q15M PRN PO DECREASED GLUCOSE; Start 12/25/16 at 02:15 Dextrose (D50w Syringe) 25 ml Q15M PRN IV DECREASED GLUCOSE; Start 12/25/16 at 02:15 Dextrose (D50w Syringe) 50 ml Q15M PRN IV DECREASED GLUCOSE; Start 12/25/16 at 02:15 Glucagon (Glucagen) 1 mg Q15M PRN IM DECREASED GLUCOSE; Start 12/25/16 at 02:15 Glucose (Glutose) 15 gm Q15M PRN BUCCAL DECREASED GLUCOSE; Start 12/25/16 at 02: 15 ASHLEY VARGAS MD Dec 25, 2016 07:35
[2016-12-25] MEDS ORDERED: LIOTHYRONINE 5 MCG TAB PO ONE (08:00)
[2016-12-25] MEDS ORDERED: SOD PHOS MONO/DIBAS 250 MG TAB PO ONE (08:00)
[2016-12-25] MEDS ORDERED: MAGNESIUM CITRATE 300 ML BTL PO ONE (08:00)
[2016-12-25] MEDS: SALMETEROL/FLUTICASONE 250/50 INHA INH SCH ×2 (08:37→21:32)
[2016-12-25] MEDS: FAMOTIDINE 20 MG INJ IV SCH ×2 (08:37→21:32)
[2016-12-25] MEDS: INSULIN ASPART [NOVOLOG] 3 ML PEN SC SCH ×8 (08:42→21:00)
[2016-12-25] MEDS: morphine 2 MG INJ IV PRN ×2 (09:20→18:06)
[2016-12-25 10:57] LABS: CALCIUM 8.6 mg/dl (8.4-10.2); CREATININE 0.73 mg/dl (0.44-1.00); POTASSIUM 4.1 mmol/L (3.5-5.1)
--- NOTE | 2016-12-25 13:50 | PN ---
Date/Time of Note Date/Time of Note DATE: 12/25/16 TIME: 13:47 Assessment/Plan VTE Prophylaxis VTE Prophylaxis Intervention: SCD's Lines/Catheters [facility] Urinary Cath still in place: Yes Assessment/Plan Chief Complaint/Hosp Course Impression and plan 1. DKA status post insulin drip. Continue insulin regimen per city attorney. 2. Myxedema. Noted with elevated TSH. On levothyroxine. Side Show Entertainer following. Follow-up with recommendations. 3. Hypothyroidism. Continue on levothyroxine 4. Essential hypertension. On antihypertensives. Adjust needed. 5. Dyslipidemia. Continue on statin medication. Stable at present. 6. History of diabetes. Continue insulin regimen. Stable at present. 7. homeless status. farmworker bulbs to follow. Disposition plan: Overall appears improving. farmworker bulbs to follow for homeless status. Discussed plan of care with Dr. Holguin Critical CARE time: 30 minutes Problems: Subjective 24 Hr Interval Summary Free Text/Dictation Slightly somnolent but does awaken to verbal stimulus. Alert and oriented with verbal communication Exam/Review of Systems Vital Signs Vitals Vital Signs Date Time Temp Pulse Resp B/P Pulse Ox O2 Delivery O2 Flow Rate FiO2 12/25/16 13:00 95 12 123/75 98 12/25/16 12:45 Room Air 12/25/16 12:00 98.2 Intake and Output 12/24/16 12/24/16 12/25/16 15:00 23:00 07:00 Intake Total 352.5 ml 852.000 ml 893.0 ml Output Total 400 ml 260 ml 240 ml Balance -47.5 ml 592.000 ml 653.0 ml Exam Constitutional: alert, oriented Head: normocephalic Respiratory: clear to auscultation, normal air movement Cardiovascular: regular rate and rhythm Gastrointestinal: non-tender, soft Musculoskeletal: swelling (Minimally bilateral lower extremities) Neurological: DINING ROOM SERVER II-XII intact, nl mental status, nl speech Results Result Diagram: 12/25/16 0433 12/25/16 1032 Results 24 hrs Laboratory Tests Test 12/24/16 14:15 12/24/16 15:07 12/24/16 15:12 12/24/16 16:05 Bedside Glucose 264 H 242 H 188 Thyroid Stimulating Hormone (TSH) 205.000 H Hepatitis B Surface Antigen NEGATIVE Hepatitis C Antibody NEGATIVE Test 12/24/16 17:08 12/24/16 18:03 12/24/16 18:39 12/24/16 20:16 Bedside Glucose 191 197 171 Sodium Level 137 Potassium Level 4.0 Chloride Level 112 H Carbon Dioxide Level 17 L Anion Gap 12 # Blood Urea Nitrogen 31 H Creatinine 0.76 Glucose Level 217 Calcium Level 9.0 Test 12/24/16 21:08 12/24/16 22:15 12/24/16 23:05 12/24/16 23:18 Bedside Glucose 143 131 122 Sodium Level 138 Potassium Level 3.8 Chloride Level 112 H Carbon Dioxide Level 20 L Anion Gap 10 Blood Urea Nitrogen 32 H Creatinine 0.71 Glucose Level 147 # Calcium Level 8.9 Random Cortisol 21.4 Test 12/25/16 00:16 12/25/16 01:02 12/25/16 01:53 12/25/16 02:58 Bedside Glucose 99 95 85 101 Test 12/25/16 04:33 12/25/16 04:37 12/25/16 08:40 12/25/16 10:32 White Blood Count 4.6 #L Red Blood Count 3.19 L Hemoglobin 11.5 L Hematocrit 32.1 L Mean Corpuscular Volume 100.6 Mean Corpuscular Hemoglobin 36.1 H Mean Corpuscular Hemoglobin Concent 35.8 Red Cell Distribution Width 12.3 Platelet Count 255 Mean Platelet Volume 10.4 Neutrophils % 62.1 Lymphocytes % 21.1 Monocytes % 15.3 H Eosinophils % 0.9 Basophils % 0.4 Nucleated Red Blood Cells % 0.0 Neutrophils # (Manual) 2.9 Lymphocytes # 1.0 Monocytes # 0.7 Eosinophils # 0.0 Basophils # 0.0 Nucleated Red Blood Cells # 0.0 Sodium Level 138 137 Potassium Level 4.1 4.1 Chloride Level 113 H 112 H Carbon Dioxide Level 18 L 17 L Anion Gap 11 12 Blood Urea Nitrogen 28 H 22 H Creatinine 0.73 0.73 Glucose Level 177 240 H Calcium Level 8.4 8.6 Total Bilirubin 0.1 L Direct Bilirubin 0.00 Indirect Bilirubin 0.1 Aspartate Amino Transf (AST/SGOT) 18 Alanine Aminotransferase (ALT/SGPT) 21 Alkaline Phosphatase 113 Troponin I < 0.012 Total Protein 5.6 #L Albumin 2.6 #L Globulin 3.00 Albumin/Globulin Ratio 0.86 Triglycerides Level 53 Cholesterol Level 175 LDL Cholesterol, Calculated 85 HDL Cholesterol 79 Cholesterol/HDL Ratio 2.2 Phosphorus Level 1.9 #L Bedside Glucose 212 Test 12/25/16 12:13 Bedside Glucose 215 Medications Medications Current Medications Dextrose (D50w Syringe) 50 ml Q15M PRN IV For BS 50 or less; Start 12/24/16 at 07:00 Dextrose (D50w Syringe) 25 ml Q15M PRN IV BS between 50-70; Start 12/24/16 at 07 :00 Ondansetron HCl (Zofran Inj) 4 mg Q6H PRN IV NAUSEA AND/OR VOMITING Last administered on 12/24/16 11:07; Admin Dose 4 MG; Start 12/24/16 at 07:00 Morphine Sulfate (morphine) 2 mg Q4H PRN IV PAIN LEVEL 7-10 Last administered on 12/25/16 09:20; Admin Dose 2 MG; Start 12/24/16 at 07:00 Lorazepam (Ativan) 1 mg Q2H PRN IV ANXIETY; Start 12/24/16 at 07:00 Famotidine (Pepcid Iv) 20 mg Q12 IV Last administered on 12/25/16 08:37; Admin Dose 20 MG; Start 12/24/16 at 09:00 Hydralazine HCl (Apresoline) 10 mg Q6H PRN IV SBP>160; Start 12/24/16 at 14:30 Salmeterol Xinafoate/ Fluticasone (Advair 250/50 Diskus) 1 inh BID INH Last administered on 12/25/16 08:37; Admin Dose 1 INH; Start 12/24/16 at 21:00 Atorvastatin Calcium (Lipitor) 40 mg HS PO Last administered on 12/24/16 20:48 ; Admin Dose 40 MG; Start 12/24/16 at 21:00 Insulin Glargine (Lantus) 25 unit DAILY@08 SC ; Start 12/26/16 at 08:00 Diagnostic Test (Pha) (Accu-Chek) 1 ea 02 XX ; Start 12/25/16 at 02:00 Miscellaneous Information 1 ea NOTE XX ; Start 12/25/16 at 02:15 Glucose (Glutose) 15 gm Q15M PRN PO DECREASED GLUCOSE; Start 12/25/16 at 02:15 Glucose (Glutose) 22.5 gm Q15M PRN PO DECREASED GLUCOSE; Start 12/25/16 at 02:15 Dextrose (D50w Syringe) 25 ml Q15M PRN IV DECREASED GLUCOSE; Start 12/25/16 at 02:15 Dextrose (D50w Syringe) 50 ml Q15M PRN IV DECREASED GLUCOSE; Start 12/25/16 at 02:15 Glucagon (Glucagen) 1 mg Q15M PRN IM DECREASED GLUCOSE; Start 12/25/16 at 02:15 Glucose (Glutose) 15 gm Q15M PRN BUCCAL DECREASED GLUCOSE; Start 12/25/16 at 02: 15 Levothyroxine Sodium (Synthroid) 150 mcg DAILY@06 PO ; Start 12/26/16 at 06:00 ANTHONY ROSALES Dec 25, 2016 13:50
[2016-12-25] MEDS: ATORVASTATIN 40 MG TAB PO SCH (21:32)
[2016-12-25] MEDS ORDERED: DEXTROSE 5%-0.45% NACL 1,000 ML IV SCH ×2 (23:30→23:45)
[2016-12-26 02:06] VITALS: BP 103/56; RESP 16
[2016-12-26] MEDS: ACCU-CHEK XX SCH (02:33)
[2016-12-26] MEDS: LEVOTHYROXINE 150 MCG TAB PO SCH (05:49)
[2016-12-26] MEDS ORDERED: INSULIN GLARGINE [LANtus] 3 ML PEN SC SCH ×2 (08:00)
[2016-12-26 08:02] VITALS: BP 93/51; RESP 20
[2016-12-26] MEDS: SALMETEROL/FLUTICASONE 250/50 INHA INH SCH ×2 (08:25→20:35)
[2016-12-26] MEDS: FAMOTIDINE 20 MG INJ IV SCH (08:25)
[2016-12-26] MEDS: INSULIN ASPART [NOVOLOG] 3 ML PEN SC SCH ×6 (08:35→20:38)
[2016-12-26 10:19] LABS: CALCIUM 8.2 mg/dl (8.4-10.2); CREATININE 0.63 mg/dl (0.44-1.00); POTASSIUM 3.7 mmol/L (3.5-5.1)
--- NOTE | 2016-12-26 10:48 | CONS ---
Date/Time of Note Date/Time of Note DATE: 12/26/16 TIME: 10:45 Assessment/Plan Assessment/Plan Chief Complaint/Hosp Course 56-year-old female who lives in a homeless halfway. She reports a 35 year history of diabetes mellitus type 2 although may have been a different timeframe but is definitely been there for at least 6 years. Where she is treated with insulin and metformin. She reports she has had some rare episodes of DKA. In the last 1 month she has been feeling poorly with some sensation of nausea and vomiting. She has not had any specific infectious symptoms. Please note shall informs today that she has been off of her thyroid medications for at least 6 weeks Problems: (1) Psychiatric disturbance Status: Chronic Comment: Again this would be flavored significantly by the hypothyroidism that was untreated. This is improving but she will need evaluation and more formalized treatment. The rubi here will be a simplified regimen. (2) Hypothyroid Status: Chronic Comment: She is coming into line nicely with replacement therapy. I would not adjust what were doing at this time. Please note when she is discharged she should be given a prescription for 90 day supplies of this medication Qualifiers: Hypothyroidism type: acquired Qualified Code: E03.9 - Acquired hypothyroidism (3) Hypertension associated with diabetes Status: Chronic Comment: Adequate control presently (4) Hyperlipidemia Status: Chronic Comment: Stable on statin therapy as noted her cholesterols would have been much higher due to the hypothyroidism which raises cholesterols Qualifiers: Hyperlipidemia type: pure hypercholesterolemia Qualified Code: E78.00 - Pure hypercholesterolemia (5) Diabetes mellitus type 2 in nonobese Status: Chronic Comment: She is out of DKA and coming under control. At this time her control is fair. The rubi here will be coming up with a regimen that is simple. Will haptics except the concept of some inadequate control for her to have a regimen that she is at least taking. (6) Noncompliance with medication regimen Status: Acute Comment: This is flavored by her psychiatric disturbance her homeless status and her being off of her medications (7) Homeless single person Status: Chronic Comment: Social work and case management assistance has been requested Consultation Date/Type/Reason Admit Date/Time Dec 24, 2016 at 06:43 Initial Consult Date 12/24/16 Type of Consultation: Endocrinology Reason for Consultation Diabetes mellitus type 2; stress-induced DKA; hypothyroidism with myxedema without coma Referring Provider: NICOLÁS HAYNES 24 HR Interval Summary Free Text/Dictation Patient reports she feels significantly better. She has not been up and ambulating yet Constitutional: no complaints Detailed Summary Respiratory: no complaints Cardiovascular: no complaints Gastrointestinal: no complaints (She reports her nausea and vomiting of stopped ) Exam/Review of Systems Vital Signs Vitals Vital Signs Date Time Temp Pulse Resp B/P Pulse Ox O2 Delivery O2 Flow Rate FiO2 12/26/16 08:02 97.4 92 20 93/51 98 12/25/16 17:00 Room Air Intake and Output 12/25/16 12/25/16 12/26/16 15:00 23:00 07:00 Intake Total 1545 ml 560 ml Output Total 600 ml 265 ml 1020 ml Balance 945 ml -265 ml -460 ml Exam Constitutional: alert, oriented Respiratory: clear to auscultation, normal air movement Cardiovascular: nl pulses, regular rate and rhythm Gastrointestinal: nl liver, spleen, non-tender, soft Results Result Diagram: 12/25/16 0433 12/26/16 0942 Results 24 hrs Laboratory Tests Test 12/25/16 12:13 12/25/16 17:52 12/25/16 21:28 12/25/16 21:44 Bedside Glucose 215 129 53 L 54 L Test 12/25/16 22:00 12/25/16 22:08 12/25/16 22:17 12/25/16 22:30 Bedside Glucose 66 L 73 69 L Glucose Level 90 # Test 12/25/16 22:46 12/25/16 23:01 12/26/16 02:26 12/26/16 08:19 Bedside Glucose 83 95 208 251 H Test 12/26/16 09:42 Sodium Level 135 Potassium Level 3.7 Chloride Level 108 Carbon Dioxide Level 21 Anion Gap 10 Blood Urea Nitrogen 15 Creatinine 0.63 Glucose Level 233 #H Calcium Level 8.2 L Medications Medications Current Medications Dextrose (D50w Syringe) 50 ml Q15M PRN IV For BS 50 or less; Start 12/24/16 at 07:00 Dextrose (D50w Syringe) 25 ml Q15M PRN IV BS between 50-70; Start 12/24/16 at 07 :00 Ondansetron HCl (Zofran Inj) 4 mg Q6H PRN IV NAUSEA AND/OR VOMITING Last administered on 12/24/16 11:07; Admin Dose 4 MG; Start 12/24/16 at 07:00 Morphine Sulfate (morphine) 2 mg Q4H PRN IV PAIN LEVEL 7-10 Last administered on 12/25/16 18:06; Admin Dose 2 MG; Start 12/24/16 at 07:00 Lorazepam (Ativan) 1 mg Q2H PRN IV ANXIETY; Start 12/24/16 at 07:00 Hydralazine HCl (Apresoline) 10 mg Q6H PRN IV SBP>160; Start 12/24/16 at 14:30 Salmeterol Xinafoate/ Fluticasone (Advair 250/50 Diskus) 1 inh BID INH Last administered on 12/26/16 08:25; Admin Dose 1 INH; Start 12/24/16 at 21:00 Atorvastatin Calcium (Lipitor) 40 mg HS PO Last administered on 12/25/16 21:32 ; Admin Dose 40 MG; Start 12/24/16 at 21:00 Diagnostic Test (Pha) (Accu-Chek) 1 ea 02 XX Last administered on 12/26/16 02: 33; Admin Dose 1 EA; Start 12/25/16 at 02:00 Miscellaneous Information 1 ea NOTE XX ; Start 12/25/16 at 02:15 Glucose (Glutose) 15 gm Q15M PRN PO DECREASED GLUCOSE; Start 12/25/16 at 02:15 Glucose (Glutose) 22.5 gm Q15M PRN PO DECREASED GLUCOSE; Start 12/25/16 at 02:15 Dextrose (D50w Syringe) 25 ml Q15M PRN IV DECREASED GLUCOSE; Start 12/25/16 at 02:15 Dextrose (D50w Syringe) 50 ml Q15M PRN IV DECREASED GLUCOSE; Start 12/25/16 at 02:15 Glucagon (Glucagen) 1 mg Q15M PRN IM DECREASED GLUCOSE; Start 12/25/16 at 02:15 Glucose (Glutose) 15 gm Q15M PRN BUCCAL DECREASED GLUCOSE; Start 12/25/16 at 02: 15 Levothyroxine Sodium (Synthroid) 150 mcg DAILY@06 PO Last administered on 05:49; Admin Dose 150 MCG; Start 12/26/16 at 06:00 Insulin Glargine (Lantus) 26 unit DAILY@08 SC ; Start 12/27/16 at 08:00; Status UNV Famotidine (Pepcid) 20 mg BID PO ; Start 12/26/16 at 21:00; Status UNV ASHLEY VARGAS MD Dec 26, 2016 10:48
[2016-12-26 13:07] VITALS: BP 114/58; RESP 20
--- NOTE | 2016-12-26 14:53 | PN ---
Date/Time of Note Date/Time of Note DATE: 12/26/16 TIME: 14:49 Assessment/Plan Lines/Catheters IV C[facility]ter Type (from [facility] Peripheral IV Urinary Cath still in place: Yes Assessment/Plan Chief Complaint/Hosp Course Impression and plan 1. DKA status post insulin drip. Continue insulin regimen per metallurgical technician. stable 2. Myxedema. improved. monitor 3. Hypothyroidism. Continue on levothyroxine 4. Essential hypertension. On antihypertensives. Adjust needed. 5. Dyslipidemia. Continue on statin medication. Stable at present. 6. History of diabetes. Continue insulin regimen. Stable at present. 7. homeless status. will need placement. geriatric social work professor following . Disposition plan: Follow up with rehabilitation caseworker and geriatric social work professor for placement Discussed plan of care with Dr. Holguin Problems: Subjective 24 Hr Interval Summary Free Text/Dictation comfortable at present. no s/s of distress. no specific complaints. Exam/Review of Systems Vital Signs Vitals Vital Signs Date Time Temp Pulse Resp B/P Pulse Ox O2 Delivery O2 Flow Rate FiO2 12/26/16 13:07 99.1 101 20 114/58 97 12/25/16 17:00 Room Air Intake and Output 12/25/16 12/25/16 12/26/16 15:00 23:00 07:00 Intake Total 1545 ml 560 ml Output Total 600 ml 265 ml 1020 ml Balance 945 ml -265 ml -460 ml Results Result Diagram: 12/25/16 0433 12/26/16 0942 Results 24 hrs Laboratory Tests Test 12/25/16 17:52 12/25/16 21:28 12/25/16 21:44 12/25/16 22:00 Bedside Glucose 129 53 L 54 L 66 L Test 12/25/16 22:08 12/25/16 22:17 12/25/16 22:30 12/25/16 22:46 Glucose Level 90 # Bedside Glucose 73 69 L 83 Test 12/25/16 23:01 12/26/16 02:26 12/26/16 08:19 12/26/16 09:42 Bedside Glucose 95 208 251 H Sodium Level 135 Potassium Level 3.7 Chloride Level 108 Carbon Dioxide Level 21 Anion Gap 10 Blood Urea Nitrogen 15 Creatinine 0.63 Glucose Level 233 #H Calcium Level 8.2 L Test 12/26/16 12:35 Bedside Glucose 193 Medications Medications Current Medications Dextrose (D50w Syringe) 50 ml Q15M PRN IV For BS 50 or less; Start 12/24/16 at 07:00 Dextrose (D50w Syringe) 25 ml Q15M PRN IV BS between 50-70; Start 12/24/16 at 07 :00 Ondansetron HCl (Zofran Inj) 4 mg Q6H PRN IV NAUSEA AND/OR VOMITING Last administered on 12/24/16 11:07; Admin Dose 4 MG; Start 12/24/16 at 07:00 Morphine Sulfate (morphine) 2 mg Q4H PRN IV PAIN LEVEL 7-10 Last administered on 12/25/16 18:06; Admin Dose 2 MG; Start 12/24/16 at 07:00 Lorazepam (Ativan) 1 mg Q2H PRN IV ANXIETY; Start 12/24/16 at 07:00 Hydralazine HCl (Apresoline) 10 mg Q6H PRN IV SBP>160; Start 12/24/16 at 14:30 Salmeterol Xinafoate/ Fluticasone (Advair 250/50 Diskus) 1 inh BID INH Last administered on 12/26/16 08:25; Admin Dose 1 INH; Start 12/24/16 at 21:00 Atorvastatin Calcium (Lipitor) 40 mg HS PO Last administered on 12/25/16 21:32 ; Admin Dose 40 MG; Start 12/24/16 at 21:00 Diagnostic Test (Pha) (Accu-Chek) 1 ea 02 XX Last administered on 12/26/16 02: 33; Admin Dose 1 EA; Start 12/25/16 at 02:00 Miscellaneous Information 1 ea NOTE XX ; Start 12/25/16 at 02:15 Glucose (Glutose) 15 gm Q15M PRN PO DECREASED GLUCOSE; Start 12/25/16 at 02:15 Glucose (Glutose) 22.5 gm Q15M PRN PO DECREASED GLUCOSE; Start 12/25/16 at 02:15 Dextrose (D50w Syringe) 25 ml Q15M PRN IV DECREASED GLUCOSE; Start 12/25/16 at 02:15 Dextrose (D50w Syringe) 50 ml Q15M PRN IV DECREASED GLUCOSE; Start 12/25/16 at 02:15 Glucagon (Glucagen) 1 mg Q15M PRN IM DECREASED GLUCOSE; Start 12/25/16 at 02:15 Glucose (Glutose) 15 gm Q15M PRN BUCCAL DECREASED GLUCOSE; Start 12/25/16 at 02: 15 Levothyroxine Sodium (Synthroid) 150 mcg DAILY@06 PO Last administered on t 05:49; Admin Dose 150 MCG; Start 12/26/16 at 06:00 Insulin Glargine (Lantus) 26 unit DAILY@08 SC ; Start 12/27/16 at 08:00 Famotidine (Pepcid) 20 mg BID PO ; Start 12/26/16 at 21:00 ANTHONY ROSALES Dec 26, 2016 14:53
[2016-12-26 16:35] VITALS: PULSE 89
[2016-12-26] MEDS: GLIMEPIRIDE 2 MG TAB PO SCH (17:22)
[2016-12-26 19:52] VITALS: BP 109/57; RESP 18
[2016-12-26] MEDS: ATORVASTATIN 40 MG TAB PO SCH (20:35)
[2016-12-26] MEDS: FAMOTIDINE 20 MG TAB PO SCH (20:35)
[2016-12-26] MEDS: morphine 2 MG INJ IV PRN (23:45)
[2016-12-27 02:00] VITALS: BP 125/89; RESP 18
[2016-12-27] MEDS: ACCU-CHEK XX SCH (02:00)
[2016-12-27] MEDS: LEVOTHYROXINE 150 MCG TAB PO SCH (05:23)
[2016-12-27 06:32] LABS: BASOPHILS % 0.4 % (0.0-2.0); EOSINOPHILS # 0.2 10^3/ul (0.0-0.5); EOSINOPHILS % 2.6 % (0.0-7.0); HEMATOCRIT 29.8 % (37.0-47.0); HEMOGLOBIN 10.5 g/dl (12.0-16.0); LYMPHOCYTES # 2.1 10^3/ul (0.8-2.9); LYMPHOCYTES % 29.3 % (15.0-51.0); MEAN CORPUSCULAR HGB CONC 35.2 g/dl (32.0-37.0); MEAN CORPUSCULAR VOLUME 99.3 fl (82.0-101.0); MEAN PLATELET VOLUME 10.6 fl (7.4-10.4); MONOCYTE # 0.3 10^3/ul (0.3-0.9); NEUTROPHILS % 63.4 % (39.0-77.0); PLATELET COUNT 219 10^3/UL (140-415); RED CELL DISTRIBUTION WIDTH 12.5 % (11.5-14.5)
[2016-12-27 06:50] LABS: CALCIUM 8.5 mg/dl (8.4-10.2); CREATININE 0.61 mg/dl (0.44-1.00); POTASSIUM 3.4 mmol/L (3.5-5.1)
[2016-12-27] MEDS ORDERED: KETOROLAC 30 MG INJ IV PRN (06:50)
[2016-12-27 07:26] VITALS: BP 94/51; RESP 16
--- NOTE | 2016-12-27 07:51 | CONS ---
Date/Time of Note Date/Time of Note DATE: 12/27/16 TIME: 07:44 Assessment/Plan Assessment/Plan Chief Complaint/Hosp Course 56-year-old female who [facility]. She reports a 35 year history of diabetes mellitus type 2 although may have been a different timeframe but is definitely been there for at least 6 years. Where she is treated with insulin and metformin. She reports she has had some rare episodes of DKA. In the last 1 month she has been feeling poorly with some sensation of nausea and vomiting. She has not had any specific infectious symptoms. Please note shall informs today that she has been off of her thyroid medications for at least 6 weeks Problems: (1) MRSA nasal colonization Status: Acute Comment: New diagnosis. I will get her started on the medication treatment for this. As an outpatient this may be somewhat tricky due to financial cost and availability of medications but will at least get her started (2) Diabetes mellitus type 2 in nonobese Status: Chronic Comment: Sugars have come under control nicely. 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 For cost expediency the [facility] is appropriate in this individual setting. Low-dose metformin can be added in but she will still need to have a single shot of insulin once a day (3) Hypertension associated with diabetes Status: Chronic Comment: Adequate control. (4) Hyperlipidemia Status: Chronic Comment: Continue statin therapy. Qualifiers: Hyperlipidemia type: pure hypercholesterolemia Qualified Code: E78.00 - Pure hypercholesterolemia (5) Hypothyroid Status: Chronic Comment: At discharge please give a 90 day supply of the medications with refills Qualifiers: Hypothyroidism type: acquired Qualified Code: E03.9 - Acquired hypothyroidism (6) Dysthymia Status: Chronic Comment: Her psychiatric disturbance will need to be coordinated and initiated back onto treatment (7) Psychiatric disturbance Status: Chronic Comment: As above. Consultation Date/Type/Reason Admit Date/Time Dec 24, 2016 at 06:43 Initial Consult Date 12/24/16 Type of Consultation: Endocrinology Reason for Consultation Diabetes mellitus type 2 with DKA; significant hypothyroidism secondary to being off treatment Referring Provider: NICOLÁS HAYNES 24 HR Interval Summary Free Text/Dictation Patient reports she is feeling significantly better. Constitutional: no complaints Exam/Review of Systems Vital Signs Vitals Vital Signs Date Time Temp Pulse Resp B/P Pulse Ox O2 Delivery O2 Flow Rate FiO2 12/27/16 07:26 98.6 88 16 94/51 97 12/25/16 17:00 Room Air Intake and Output 12/26/16 12/26/16 12/27/16 15:00 23:00 07:00 Intake Total 960 ml 150 ml Output Total 600 ml 1400 ml Balance 360 ml -1250 ml Results No changes in exam Result Diagram: 12/27/16 0538 12/27/16 0538 Results 24 hrs Laboratory Tests Test 12/26/16 08:19 12/26/16 09:42 12/26/16 12:35 12/26/16 17:21 Bedside Glucose 251 H 193 103 Sodium Level 135 Potassium Level 3.7 Chloride Level 108 Carbon Dioxide Level 21 Anion Gap 10 Blood Urea Nitrogen 15 Creatinine 0.63 Glucose Level 233 #H Calcium Level 8.2 L Test 12/26/16 20:37 12/27/16 05:38 Bedside Glucose 154 White Blood Count 7.0 # Red Blood Count 3.00 L Hemoglobin 10.5 L Hematocrit 29.8 L Mean Corpuscular Volume 99.3 Mean Corpuscular Hemoglobin 35.0 H Mean Corpuscular Hemoglobin Concent 35.2 Red Cell Distribution Width 12.5 Platelet Count 219 Mean Platelet Volume 10.6 H Neutrophils % 63.4 Lymphocytes % 29.3 Monocytes % 4.0 Eosinophils % 2.6 Basophils % 0.4 Nucleated Red Blood Cells % 0.0 Neutrophils # (Manual) 4.5 Lymphocytes # 2.1 Monocytes # 0.3 Eosinophils # 0.2 Basophils # 0.0 Nucleated Red Blood Cells # 0.0 Sodium Level 138 Potassium Level 3.4 L Chloride Level 110 Carbon Dioxide Level 23 Anion Gap 8 Blood Urea Nitrogen 8 Creatinine 0.61 Glucose Level 119 # Calcium Level 8.5 Medications Medications Current Medications Dextrose (D50w Syringe) 50 ml Q15M PRN IV For BS 50 or less; Start 12/24/16 at 07:00 Dextrose (D50w Syringe) 25 ml Q15M PRN IV BS between 50-70; Start 12/24/16 at 07 :00 Ondansetron HCl (Zofran Inj) 4 mg Q6H PRN IV NAUSEA AND/OR VOMITING Last administered on 12/24/16t 11:07; Admin Dose 4 MG; Start 12/24/16 at 07:00 Morphine Sulfate (morphine) 2 mg Q4H PRN IV PAIN LEVEL 7-10 Last administered on 12/26/16 23:45; Admin Dose 2 MG; Start 12/24/16 at 07:00 Lorazepam (Ativan) 1 mg Q2H PRN IV ANXIETY; Start 12/24/16 at 07:00 Hydralazine HCl (Apresoline) 10 mg Q6H PRN IV SBP>160; Start 12/24/16 at 14:30 Salmeterol Xinafoate/ Fluticasone (Advair 250/50 Diskus) 1 inh BID INH Last administered on 12/26/16 20:35; Admin Dose 1 INH; Start 12/24/16 at 21:00 Atorvastatin Calcium (Lipitor) 40 mg HS PO Last administered on 12/26/16 20:35 ; Admin Dose 40 MG; Start 12/24/16 at 21:00 Diagnostic Test (Pha) (Accu-Chek) 1 ea 02 XX Last administered on 12/26/16 02: 33; Admin Dose 1 EA; Start 12/25/16 at 02:00 Miscellaneous Information 1 ea NOTE XX ; Start 12/25/16 at 02:15 Glucose (Glutose) 15 gm Q15M PRN PO DECREASED GLUCOSE; Start 12/25/16 at 02:15 Glucose (Glutose) 22.5 gm Q15M PRN PO DECREASED GLUCOSE; Start 12/25/16 at 02:15 Dextrose (D50w Syringe) 25 ml Q15M PRN IV DECREASED GLUCOSE; Start 12/25/16 at 02:15 Dextrose (D50w Syringe) 50 ml Q15M PRN IV DECREASED GLUCOSE; Start 12/25/16 at 02:15 Glucagon (Glucagen) 1 mg Q15M PRN IM DECREASED GLUCOSE; Start 12/25/16 at 02:15 Glucose (Glutose) 15 gm Q15M PRN BUCCAL DECREASED GLUCOSE; Start 12/25/16 at 02: 15 Levothyroxine Sodium (Synthroid) 150 mcg DAILY@06 PO Last administered on 05:23; Admin Dose 150 MCG; Start 12/26/16 at 06:00 Insulin Glargine (Lantus) 26 unit DAILY@08 SC ; Start 12/27/16 at 08:00 Famotidine (Pepcid) 20 mg BID PO Last administered on 9/3/17at 20:35; Admin Dose 20 MG; Start 12/26/16 at 21:00 ASHLEY VARGAS MD Dec 27, 2016 07:51
[2016-12-27] MEDS ORDERED: INSULIN GLARGINE [LANtus] 3 ML PEN SC SCH (08:00)
[2016-12-27] MEDS: INSULIN ASPART [NOVOLOG] 3 ML PEN SC SCH ×3 (08:15→17:50)
[2016-12-27] MEDS: GLIMEPIRIDE 2 MG TAB PO SCH ×2 (08:35→17:47)
[2016-12-27] MEDS: FAMOTIDINE 20 MG TAB PO SCH (08:35)
[2016-12-27] MEDS: SALMETEROL/FLUTICASONE 250/50 INHA INH SCH (08:36)
[2016-12-27] MEDS ORDERED: RIFAMPIN 300 MG CAP PO SCH (09:00)
[2016-12-27] MEDS ORDERED: MUPIROCIN 2% 22 GM OINT TOP SCH (09:00)
[2016-12-27] MEDS ORDERED: POTASSIUM CHLORIDE (SR) 20 MEQ TAB PO STA (11:14)
[2016-12-27] MEDS ORDERED: LANT3I SC (11:43)
[2016-12-27] MEDS ORDERED: LEVO150T67 PO (11:43)
[2016-12-27] MEDS ORDERED: GLIM2TAB47 PO (11:43)
[2016-12-27] MEDS ORDERED: BLOO-62 MC (11:46)
--- NOTE | 2016-12-27 11:54 | PDOCDIS ---
Discharge Instructions CONDITION Patient Condition: Stable HOME CARE INSTRUCTIONS: Special Diet: 1800 ada ACTIVITY: Activity Restrictions: Slowly Increase Activity FOLLOW UP/APPOINTMENTS Follow-up Plan We stopped all your blood pressure medication in the hospital because your blood pressure was low. Please check your blood pressures at home daily with your new cuff and bring the numbers to your regular doctor by the end of the week. We changed your diabetes medicine a little while you were here. We changed your metformin to glimeperide and your lantus/insulin dose was increased. Please check your blood sugar every morning and before your largest meal of the day and bring these numbers to your regular doctor by the end of the week. Your thyroid medicine/levothyroxine dose was increased. Please follow up with your regular doctor for refills on this new higher dose. Follow up with your PCP and new commercial photographer as advised by your insurance company. If you don't hear from your insurance company this week, here is the contact info for the commercial photographer (diabetes and thyroid doctor) who saw you in the hospital Dr Kaushik Jones Office Address [address] [place] [id number] Office JUDITH JI MD Dec 27, 2016 11:54
--- NOTE | 2016-12-27 11:57 | DS ---
Date/Time of Note Date/Time of Note DATE: 12/27/16 TIME: 11:54 Discharge Summary Admission/Discharge Info Admit Date/Time Dec 24, 2016 at 06:43 Discharge Date/Time Discharge Diagnosis DKA from insulin nonadherence, hypothyroidism with myxedema Patient Condition: Stable Consults endocrinology Procedures 9.1 CT AP IMPRESSION: 1. Status post cholecystectomy. 2. Multiple diffuse small bilateral scattered nonobstructing renal calculi. 3. Prominence of the renal collecting system bilaterally most likely secondary to a distended urine filled bladder. 4. Diffuse circumferential thickening of the distal esophagus. This may be secondary to esophagitis. Clinical correlation is necessary. 5. Retained stool without gross bowel obstruction. 6. Degenerative changes within the spine at L3-4. Hx of Present Illness This is a 56-year-old female with history of insulin-dependent diabetes, asthma , hypertension, dyslipidemia, PTSD, bipolar, schizophrenia, depression, hypothyroidism who presented to the emergency department with abdominal pain and nausea and vomiting. Abdominal pain is diffuse and she described emesis as nonbilious nonbloody. Also reported generalized weakness. When she presented to the ER she was found to be in DKA with a blood glucose of 650, bicarb 10, anion gap 34 with a 4+ ketones in the urine. PH 7.22 on ABG. . Hospital Course Pt initially admitted to ICU on insulin drip. Transitioned to SubQ and transferred to the floor 9.2. Pt also with profound hypothyroidism evidence by high TSH and myxedema per endo. Pt started on higher dose of levothyroxine that she'd previously been on. Pt received diabetic education during her hospital stay. Of note, pt had a CT a/p done on admission for abd pain-->notable finding was inferior esophageal thickening. This should be followed up in the outpatient setting by PCP, and possible GI referral at PCP discretion. Also all of pt's home BP meds are on hold as BP within acceptable range without them. Pt given a home BP cuff to check BPs at home. She was also given an rx for new diabetic testing supplies. Home Meds Active Scripts Blood Pressure Test Kit (BLOOD PRESSURE KIT) 1 Each Kit, 1 EACH MC, #1 check blood pressure daily. Bring results to your PCP. If top number >180 or bottom number >100, call your PCP right away. Prov:JUDITH JI MD 12/27/16 Glimepiride* (Amaryl*) 2 Mg Tablet, 2 MG PO AC BREAKFAST DINNER for 30 Days, # 60 TAB Prov:JUDITH JI MD 12/27/16 Insulin Glargine* (Lantus*) 100 Unit/Ml Soln, 26 UNIT SC DAILY@08 for 30 Days, # 2 VIAL Prov:JUDITH JI MD 12/27/16 Levothyroxine Sodium* (Levothyroxine Sodium*) 150 Mcg Tablet, 150 MCG PO BEFORE BREAKFAST, #30 TAB 0 Refills Prov:JUDITH JI MD 12/27/16 Acetaminophen* (Tylenol*) 325 Mg Tablet, 2 TAB PO Q6 Y for PAIN AND OR ELEVATED TEMP, #20 TAB Prov:ZOIE DUNCAN NP 05/02/16 Reported Medications Aripiprazole* (Abilify*) 5 Mg Tab, 5 MG PO DAILY, TAB 04/10/14 Albuterol Sulfate* (Albuterol Sulfate* Neb) 0.083%-3 Ml Neb, 1.25 MG NEB for WHEEZING AND SOB, EA 01/16/14 Loratadine* (Claritin*) 10 Mg Capsule, 10 MG PO DAILY 11/13/12 Risperidone* (Risperdal*) 1 Mg Tablet, 1 MG PO DAILY 08/09/12 Lisinopril* (Prinivil*) 5 Mg Tablet, 5 MG PO DAILY 08/09/12 Hydrochlorothiazide (Hydrochlorothiazide) 12.5 Mg Capsule, 12.5 MG PO DAILY 04/15/12 Aspirin (Aspirin) 81 Mg Tablet, 81 MG PO DAILY 04/15/12 Ezetimibe-Simvastatin (Vytorin) 1 Tab Tablet, 1 TAB PO DAILY 04/15/12 Metoprolol Tartrate* (Lopressor*) 25 Mg Tab, 12.5 MG PO DAILY 04/15/12 Metformin Hcl* (Metformin Hcl*) 1,000 Mg Tablet, 1000 MG PO BID 04/15/12 Omeprazole* (Prilosec*) 20 Mg Capsule.dr, 20 MG PO DAILY 04/15/12 Gabapentin* (Neurontin*) 600 Mg Tablet, 600 MG PO TID 04/15/12 Discontinued Reported Medications Levothyroxine Sodium* (Levothyroxine Sodium*) 100 Mcg Tablet, 100 MCG PO DAILY 04/15/12 Discontinued Scripts Acetaminophen with Codeine (Acetaminophen-Cod #3 Tablet) 1 Each Tablet, 1 TAB PO Q6H Y for PAIN, #10 TAB Prov:KAPIL CHERRY MD 09/01/16 Ondansetron Hcl* (Zofran*) 4 Mg Tablet, 4 MG PO Q6H for NAUSEA AND/OR VOMITING, #9 TAB Prov:ZOIE DUNCAN, BON 05/02/16 Ondansetron (Ondansetron Odt) 4 Mg Tab.rapdis, 4 MG PO Q6H Y for NAUSEA AND/OR VOMITING, #10 TAB Prov:ASHLEY MURPHY DO 01/19/16 Naproxen* (Naproxen*) 500 Mg Tablet, 500 MG PO BID Y for PAIN, #20 TAB Prov:ASHLEY MURPHY DO 01/19/16 Ondansetron Hcl* (Zofran* ODT) 4 mg -ODT Tab.disper, 4 MG PO Q6 Y for NAUSEA AND /OR VOMITING, #10 TAB Prov:CAT PATTON MD 06/11/15 Follow-up Plan PCP within 5 days, PCP to consider GI eval endo within 4 weeks Primary Care Provider Not On Staff Doctor Time spent on discharge: > 30 minutes Pending Labs Laboratory Tests Test 12/26/16 12:35 12/26/16 17:21 12/26/16 20:37 12/27/16 05:38 Bedside Glucose 193mg/dL (70-220) 103mg/dL (70-220) 154mg/dL (70-220) White Blood Count 7.010^3/ul (4.8-10.8) Red Blood Count 3.0010^6/ul (4.20-5.40) Hemoglobin 10.5g/dl (12.0-16.0) Hematocrit 29.8% (37.0-47.0) Mean Corpuscular Volume 99.3fl (82.0-101.0) Mean Corpuscular Hemoglobin 35.0pg (29.0-33.0) Mean Corpuscular Hemoglobin Concent 35.2g/dl (32.0-37.0) Red Cell Distribution Width 12.5% (11.5-14.5) Platelet Count 08288^3/UL (140-415) Mean Platelet Volume 10.6fl (7.4-10.4) Neutrophils % 63.4% (39.0-77.0) Lymphocytes % 29.3% (15.0-51.0) Monocytes % 4.0% (0.0-11.0) Eosinophils % 2.6% (0.0-7.0) Basophils % 0.4% (0.0-2.0) Nucleated Red Blood Cells % 0.0/100WBC (0.0-0.0) Neutrophils # (Manual) 4.510^3/ul (1.7-7.5) Lymphocytes # 2.110^3/ul (0.8-2.9) Monocytes # 0.310^3/ul (0.3-0.9) Eosinophils # 0.210^3/ul (0.0-0.5) Basophils # 0.010^3/ul (0.0-0.1) Nucleated Red Blood Cells # 0.010^3/ul (0.0-0.0) Sodium Level 138mmol/L (135-144) Potassium Level 3.4mmol/L (3.5-5.1) Chloride Level 110mmol/L (97-110) Carbon Dioxide Level 23mmol/L (21-31) Anion Gap 8 (8-16) Blood Urea Nitrogen 8mg/dl (7-20) Creatinine 0.61mg/dl (0.44-1.00) Glucose Level 119mg/dl (70-220) Calcium Level 8.5mg/dl (8.4-10.2) Test 12/27/16 08:31 Bedside Glucose 131mg/dL (70-220) Copies To: CC: ASHLEY VARGAS MD, ELLEN MD Dec 27, 2016 11:57 JUDITH JI MD Dec 27, 2016 11:57
[2016-12-27 14:00] VITALS: BP 90/57; RESP 18
[2016-12-28 15:51] LABS: MICROALBUMIN 4.8 mg/dL
== END 2016-12-27 18:25 | disposition home or self-care (01) | DRG 639 ==
LOC: E/R 01:18 → ICU 06:43 → MS2 12-25 17:21
PROVIDERS: ADMIT Internal Medicine; ATTEND Internal Medicine
PROC: 4A033R1 Measurement of Arterial Saturation, Peripheral, Percutaneous Approach (ICD-10-PCS; principal; 2016-12-24)
DX: E13.10 Other specified diabetes mellitus with ketoacidosis without coma (principal); I15.2 Hypertension secondary to endocrine disorders; E11.69 Type 2 diabetes mellitus with other specified complication; E03.9 Hypothyroidism, unspecified; Z59.0 Homelessness; E78.00 Pure hypercholesterolemia, unspecified; K21.9 Gastro-esophageal reflux disease without esophagitis; J45.20 Mild intermittent asthma, uncomplicated; F34.1 Dysthymic disorder; Z87.891 Personal history of nicotine dependence; Z22.322 Carrier or suspected carrier of Methicillin resistant Staphylococcus aureus; Z91.14 Patient's other noncompliance with medication regimen
CPT/HCPCS: 36415; 36600; 74176; 76937; 80048; 80053; 80061; 81003; 82043; 82533; 82803; 82947; 82962; 83036; 83690; 84100; 84443; 84484; 85025; 86803; 87040; 87075; 87081; 87086; 87340; 96374; 96375; J1170; J1815; J2270; J2405; J3480; J7030; J7042; J7120

== ENCOUNTER 2016-12-31 14:37 | Outpatient (CLI) | payer OTHER ==
[~2016-12-31] VITALS: Ht 152.4 cm; Wt 66.6 kg
[~2016-12-31 14:37] MED LIST changes: +BLOO-62 MC; +GLIM2TAB47 PO; +LANT3I SC; +LEVO150T67 PO
[2016-12-31 15:06] VITALS: BP 111/65; PULSE 115; RESP 18
[2016-12-31 15:08] VITALS: Ht 152.4 cm; Wt 66.6 kg
--- NOTE | 2016-12-31 15:30 | PN ---
Date/Time of Note Date/Time of Note DATE: 12/31/16 TIME: 15:25 Outpatient Progress Note Chief Complaint DK/diabetes/hypertension/hyperlipidemia/depression/hypothyroidism/kidney stone/ heartburn HPI DKA/patient was recently admitted with a DKA, patient feeling better, no nausea or vomiting, Diabetes/no polydipsia polyuria hypoglycemia or gastroparesis, Hypertension/no headache or dizziness, no local focal weakness, Hyperlipidemia/no xanthoma, on medication, no side effect, Depression/patient has a history of depression, on medication, no side effect, no suicidal idea, Hypothyroidism/no puffiness of eyes, no constipation, on medication, Kidney stone/patient has nonobstructing bilateral kidney stone, no abdominal or back pain, no fever chill, no blood in the urine Heartburn/patient has heartburn, especially retrosternal, patient was on omeprazole, patient is not taking at present, Review of Systems Const: No Fever, no chills, no Wt. loss, no Fatigue, normal appetite, no diaphoresis. Eyes: No pain, no discharge, no redness, no visual change, no foreign body. ENT: No pain, no bleeding, no congestion, no sore throat, no dysphagia, no discharge or rhinitis. Lymph: No adenopathy, no tender nodes, no lymphedema. Resp: No SOB, no cough, no sputum, no wheezing, no chest pain. CV: No chest pain, no palpitaions, no SARABIA, no PND, no edema. GI: Normal appetite, no pain, no nausea, no vomiting, no diarrhea, no blood, no constipation. : No frequency, no urgency, no dysuria, no hematuria, no flank pain, no discharge, no bleeding. Musc: No bone/joint pain, no back pain, no neck pain, no knee pain, no restricted ROM. Skin: No rash, no skin lesions, no erythema, no laceration, no bruising, no pruritus. Neuro: No BEE, no dizziness, no syncope, no seizure, no focal-weakness. Endo: No polyuria, no polydypsia, no dry-skin, no temp-intolerance. Psych: No hallucinations, no depression, no anxiety, no suicidal ideation. Ext: No edema, no pain, no ulcer, no weakness. Physical Exam Vital Signs Date Time Temp Pulse Resp B/P Pulse Ox O2 Delivery O2 Flow Rate FiO2 9/8/17 15:06 98.2 115 18 111/65 97 Room Air General Appearance: A 56 year-old female who appears well-developed, well- nourished, in no acute distress. HEENT: Head normocephalic, atraumatic. Pupils equal, round, reactive to light and accommodate. Sclerae are no jaundice. Nasal turbinates pink without erythema or nasal discharge. Mucous membranes pink and moist without lesions. Oropharynx clear without any exudate or discharge. NECK: Supple. Trachea midline, No thyromegaly, No cervical lymphadenopathy, No mass, No carotid bruits, No JVD, Carotid pulses 2+ bilaterally. PULMONARY: Clear to auscultaion bilaterally, No retractions, Chest expansion symmetric bilaterally, no rales, no ronchi, no dulness on percussion. CARDIAC: Normal SI and S2, Regular rate and rythm, no murmur, gallop, or rub. GASTROINTESTINAL: Abdomen is soft, non-tender, Non Rigid, No distention, Positive bowel sounds x4 quadrants, Liver normal. SKIN: Warm, dry, no rash, no bruise, no echmosis. EXTREMITIES: Bilateral lower extremities normal, no edema, no phlabitus, pulse palpable, no contracture. MUSCULOSKELETAL: Spine Normal, Non-tender, Normal range of motion, No swelling, no deformity, no clubbing, or cyanosis, the patient has no edema to bilateral lower extremities, dorsalis pedis pulses palpable bilaterally. NEUROLOGIC: The patient is awake, alert, oriented, responding to yes/no questions appropriately, moving all extremities, cranial nerve intact, normal strenght, normal power, normal coordination, normal gait. Allergies Coded Allergies: povidone-iodine (Unverified Allergy, Unknown, SWELLING, 12/24/16) PMH Diabetic ketoacidosis/hypertension/hyperlipidemia/depression/hypothyroidism/ kidney stone/PUD/DJD Social Hx No smoking no drinking, Family Hx Noncontributory Assessment/Plan Impression DKA resolved Diabetes Hypertension Hyperlipidemia Depression Hypothyroidism Kidney stone/nonobstructing Heartburn/PUD Plan Patient education done about diabetes hypertension hypothyroidism hyperlipidemia and kidney stone, patient understands well, patient high risk for repeated admission for multiple reason, Patient encouraged to follow with the primary care physician, Patient has esophagitis, and thickening of the wall, and patient not taking any medication, patient was on omeprazole, before and as patient has heartburn, will resume omeprazole 40 mg p.o. daily #30, Patient encouraged to reduce the weight, reduce the blood sugar and control the blood pressure, increase exercise, and control the diet, Patient very high risk for multiple reason for repeated admission and complication, Medications Home Meds Active Scripts Blood Pressure Test Kit (BLOOD PRESSURE KIT) 1 Each Kit, 1 EACH , #1 check blood pressure daily. Bring results to your PCP. If top number >180 or bottom number >100, call your PCP right away. Prov:JUDITH JI MD 12/27/16 Glimepiride* (Amaryl*) 2 Mg Tablet, 2 MG PO AC BREAKFAST DINNER for 30 Days, # 60 TAB Prov:JUDITH JI MD 12/27/16 Insulin Glargine* (Lantus*) 100 Unit/Ml Soln, 26 UNIT SC DAILY@08 for 30 Days, # 2 VIAL Prov:JUDITH JI MD 12/27/16 Levothyroxine Sodium* (Levothyroxine Sodium*) 150 Mcg Tablet, 150 MCG PO BEFORE BREAKFAST, #30 TAB 0 Refills Prov:JUDITH JI MD 12/27/16 Acetaminophen* (Tylenol*) 325 Mg Tablet, 2 TAB PO Q6 Y for PAIN AND OR ELEVATED TEMP, #20 TAB Prov:ZOIE DUNCAN, MRI SUPERVISOR 05/02/16 Reported Medications Aripiprazole* (Abilify*) 5 Mg Tab, 5 MG PO DAILY, TAB 04/10/14 Albuterol Sulfate* (Albuterol Sulfate* Neb) 0.083%-3 Ml Neb, 1.25 MG NEB for WHEEZING AND SOB, EA 01/16/14 Loratadine* (Claritin*) 10 Mg Capsule, 10 MG PO DAILY 11/13/12 Risperidone* (Risperdal*) 1 Mg Tablet, 1 MG PO DAILY 08/09/12 Aspirin (Aspirin) 81 Mg Tablet, 81 MG PO DAILY 04/15/12 Ezetimibe-Simvastatin (Vytorin) 1 Tab Tablet, 1 TAB PO DAILY 04/15/12 Omeprazole* (Prilosec*) 20 Mg Capsule.dr, 20 MG PO DAILY 04/15/12 Gabapentin* (Neurontin*) 600 Mg Tablet, 600 MG PO TID 04/15/12 Discontinued Reported Medications Lisinopril* (Prinivil*) 5 Mg Tablet, 5 MG PO DAILY 08/09/12 Hydrochlorothiazide (Hydrochlorothiazide) 12.5 Mg Capsule, 12.5 MG PO DAILY 04/15/12 Levothyroxine Sodium* (Levothyroxine Sodium*) 100 Mcg Tablet, 100 MCG PO DAILY 04/15/12 Metoprolol Tartrate* (Lopressor*) 25 Mg Tab, 12.5 MG PO DAILY 04/15/12 Metformin Hcl* (Metformin Hcl*) 1,000 Mg Tablet, 1000 MG PO BID 04/15/12 Discontinued Scripts Acetaminophen with Codeine (Acetaminophen-Cod #3 Tablet) 1 Each Tablet, 1 TAB PO Q6H Y for PAIN, #10 TAB Prov:KAPIL CHERRY MD 09/01/16 Ondansetron Hcl* (Zofran*) 4 Mg Tablet, 4 MG PO Q6H for NAUSEA AND/OR VOMITING, #9 TAB Prov:ZOIE DUNCAN, BON 05/02/16 Ondansetron (Ondansetron Odt) 4 Mg Tab.rapdis, 4 MG PO Q6H Y for NAUSEA AND/OR VOMITING, #10 TAB Prov:ASHLEY MURPHY DO 01/19/16 Naproxen* (Naproxen*) 500 Mg Tablet, 500 MG PO BID Y for PAIN, #20 TAB Prov:ASHLEY MURPHY DO 01/19/16 Ondansetron Hcl* (Zofran* ODT) 4 mg -ODT Tab.disper, 4 MG PO Q6 Y for NAUSEA AND /OR VOMITING, #10 TAB Prov:CAT PATTON MD 06/11/15 MARY MOJICA MD Dec 31, 2016 15:30
== END 2016-12-31 16:37 | disposition home or self-care (01) ==
LOC: DCC 14:37
PROVIDERS: ATTEND Internal Medicine
DX: E13.10 Other specified diabetes mellitus with ketoacidosis without coma (principal); I10 Essential (primary) hypertension; E78.5 Hyperlipidemia, unspecified; F32.9 Major depressive disorder, single episode, unspecified; E03.9 Hypothyroidism, unspecified; N20.0 Calculus of kidney; R12 Heartburn

== ENCOUNTER 2017-12-25 11:05 | Emergency (ER) | END 2017-12-25 13:00 | disposition home or self-care (01) ==

== ENCOUNTER 2018-01-20 17:03 | Emergency (ER) | END 2018-01-20 21:36 | disposition home or self-care (01) ==

== ENCOUNTER 2018-01-27 22:54 | Emergency (ER) | END 2018-01-28 04:35 | disposition short-term general hospital (02) ==